=== PATIENT | male | born 1960 | race Caucasian/White ===

== ENCOUNTER 2020-11-04 10:24 | Outpatient (REF) | payer BC, SELFPAY | END 2020-11-04 10:25 | disposition home or self-care (01) | LOC: HO.LAB 10:24 | PROVIDERS: Visit Provider Internal Medicine | DX: Z20.822 Contact with and (suspected) exposure to COVID-19 (principal) | CPT/HCPCS: 36415; C9803; U0003; U0005 ==

== ENCOUNTER 2021-05-24 06:03 | Outpatient (REF) | payer BC, SELFPAY ==
--- NOTE | ~2021-05-24 | XR_ITS ---
EXAMINATION: XR LUMBAR SPINE XR PELVIS CLINICAL INFORMATION: Back and pelvic pain. Evaluate for osteoarthritis or degenerative disc disease. COMPARISON: None. TECHNIQUE: AP and lateral views of the lumbosacral spine are obtained. A lateral coned-down view of the lumbosacral junction is obtained. AP view the pelvis is obtained. FINDINGS: Lumbar Spine: There is no acute fracture or subluxation. There is ebxc-pw-[id number] multilevel degenerative disc disease, most prominent at the L3-4 and L4-5 levels. There is multilevel bilateral facet arthropathy, worse at the lower lumbar levels. Pelvis: There is no acute fracture or malalignment. There is mild osteoarthritis of the right hip. The left hip and sacroiliac joints are unremarkable. XR/XR lumbar spine 2-3V IMPRESSION: LUMBAR SPINE: [id number] multilevel degenerative disc disease. PELVIS: Mild osteoarthritis of the right hip.
--- NOTE | ~2021-05-24 | XR_ITS ---
EXAMINATION: XR CHEST CLINICAL INFORMATION: Weight loss. Back pain. COMPARISON: None TECHNIQUE: 2 views of the chest were obtained. FINDINGS: The cardiac and mediastinal contours are normal. There is a round density seen projecting over the left lung base and heart and adjacent to the spine measuring 2.6 cm on the PA view. There is a round density that projects over a lower thoracic vertebral body on the lateral view, the T10 vertebral body. Findings are questionable for a left lower lobe pulmonary nodule versus less likely sclerotic bone lesion. The lungs are otherwise clear. There is no pleural effusion or pneumothorax. There are degenerative changes of the spine.. XR/XR chest 2V IMPRESSION: Question left lower lobe pulmonary nodule versus sclerotic bone lesion. Follow-up chest CT scan recommended. Degenerative changes of the spine.
--- NOTE | ~2021-05-24 | XR_ITS ---
EXAMINATION: XR LUMBAR SPINE XR PELVIS CLINICAL INFORMATION: Back and pelvic pain. Evaluate for osteoarthritis or degenerative disc disease. COMPARISON: None. TECHNIQUE: AP and lateral views of the lumbosacral spine are obtained. A lateral coned-down view of the lumbosacral junction is obtained. AP view the pelvis is obtained. FINDINGS: Lumbar Spine: There is no acute fracture or subluxation. There is [id number] multilevel degenerative disc disease, most prominent at the L3-4 and L4-5 levels. There is multilevel bilateral facet arthropathy, worse at the lower lumbar levels. Pelvis: There is no acute fracture or malalignment. There is mild osteoarthritis of the right hip. The left hip and sacroiliac joints are unremarkable. XR/XR pelvis 1-2V IMPRESSION: LUMBAR SPINE: [id number] multilevel degenerative disc disease. PELVIS: Mild osteoarthritis of the right hip.
[2021-05-24 06:57] LABS: MANUAL DIFF FLAG NO
[2021-05-24 07:03] LABS: Basophils Absolute Auto 0.1 X10*3/uL (0.0-0.2); Basophils Percent Auto 1.6 % (0-2); Eosinophils Absolute Auto 0.6 X10*3/uL (0.0-0.4); Eosinophils Percent Auto 11.7 % (0-4); Hemoglobin 14.1 g/dl (14.0-18.0); Imm Gran Abs Auto 0.01 X10*3/uL (0.00-0.03); Imm Gran Pct Auto 0.2 % (0.0-0.4); Lymphocytes Absolute Auto 1.8 X10*3/uL (1.2-4.9); Lymphocytes Percent Auto 35.5 % (20-40); Mean Corpuscular HGB Conc 33.6 g/dl (31.0-36.0); Mean Corpuscular Hemoglobin 32.3 pg (27.0-33.0); Mean Corpuscular Volume 96.3 fL (80-98); Mean Platelet Volume 8.9 fL (9.4-12.4); Monocytes Absolute Auto 0.6 X10*3/uL (0.1-1.2); Monocytes Percent Auto 11.1 % (2-11); Neutrophils Percent Auto 39.9 % (45-73); Platelet Count 286 X10*3/uL (160-400); Red Blood Count 4.36 X10*6/uL (4.60-5.80); Red Cell Distribution Width 13.2 % (11.0-16.0)
[2021-05-24 07:12] LABS: Alanine Aminotransferase 31 U/L (0-40); Albumin Level 4.3 g/dL (3.5-5.0); Alkaline Phosphatase 54 U/L (39-117); Anion Gap 10 (12-20); Aspartate Amino Transferase 36 U/L (5-37); Bilirubin Total 0.9 mg/dL (0.0-1.0); Blood Urea Nitrogen 15 mg/dL (9-16); C Reactive Protein 0.07 mg/dL (< or = 0.50); Calcium 9.6 mg/dL (8.4-10.2); Carbon Dioxide 28 mmol/L (22-29); Chloride 108 mmol/L (96-108); Cholesterol 159 mg/dL; Estimated Glomerular Filt Rate > 60; Glucose Fasting 101 mg/dL (60-99); HDL Cholesterol 54 mg/dL; LDL Cholesterol Calculated 93 mg/dl; Potassium 4.7 mmol/L (3.3-5.1); Sodium 141 mmol/L (135-145); Total Protein 6.9 g/dL (6.5-8.0); Triglycerides 62 mg/dL
[2021-05-24 07:31] LABS: Glucose Urine UA NEG (NEG); Leukocyte Esterase Urine NEG (NEG); Nitrite Urine NEG (NEG); Specific Gravity - Urine 1.025 (1.005-1.025); Urine Blood NEG (NEG); Urine Ketones NEG (NEG); Urine Protein NEG (NEG-TRACE)
[2021-05-24 07:32] LABS: Appearance Urine CLEAR; Color Urine YELLOW
[2021-05-24 07:47] LABS: Thyroid Stimulating Hormone 1.44 uIU/mL (0.32-4.0)
[2021-05-24 09:21] LABS: Prostate Specific Antigen 1.54 ng/mL (<0.05-4.0)
== END 2021-05-24 06:04 | disposition home or self-care (01) ==
LOC: HO.LAB 06:03
PROVIDERS: PCP Internal Medicine; Visit Provider Internal Medicine
DX: Z12.5 Encounter for screening for malignant neoplasm of prostate (principal); R10.2 Pelvic and perineal pain; R63.4 Abnormal weight loss; M54.5 Low back pain
CPT/HCPCS: 36415; 71046; 72100; 72170; 80053; 80061; 81003; 84153; 84443; 85025; 86140

== ENCOUNTER 2021-06-09 07:54 | Outpatient (REF) | payer BC, SELFPAY ==
--- NOTE | ~2021-06-09 | MR_ITS ---
EXAMINATION: MR LUMBAR SPINE WITHOUT CONTRAST CLINICAL INFORMATION: Back pain radiating to both sciatic nerves. COMPARISON: X-rays of the lumbar spine 05/24/2021. TECHNIQUE: MRI of the lumbar spine was obtained using routine sequences without contrast. FINDINGS: VERTEBRAL BODIES AND PARASPINAL STRUCTURES: There are mild retrolistheses of L1 on L2, L3 on L4 and L4 on L5. There is narrowing of intervertebral disc height with loss of signal from the discs at L3-L4 and L4-L5. The vertebral bodies have normal height and contour and no fractures are demonstrated. There are multilevel degenerative endplate contour changes with mild edematous signal toward the left at L1-L2 and L3-L4, and toward the right at L4-L5 and L5-S1. There are Schmorl's nodes at adjacent endplates at multiple levels throughout the lower thoracic and lumbar spine. Overall, marrow signal is homogenous. The visualized retroperitoneal and pelvic structures are unremarkable. CONUS MEDULLARIS AND CAUDA EQUINA: Normal, terminating at the level of L1. The lower thoracic spinal cord appears normal. The cauda equina nerve roots and filum terminale appear normal. SPINAL LEVELS: L1-L2: There is mild bilateral facet arthropathy. Posterior contour is normal. There is no central stenosis or foraminal narrowing. L2-L3: There is mild to moderate bilateral facet arthropathy. Posterior disc contour is normal. There is no central stenosis or foraminal narrowing. L3-L4: There is mild to moderate bilateral facet arthropathy. There is a posterior disc protrusion which extends into the neural foramina, more prominent on the left and there is impingement on the exiting left greater than right L3 nerve roots. There is no central stenosis. L4-L5: There is moderate bilateral facet arthropathy. There is a posterior disc protrusion with an annular fissure which extends into the neural foramina laterally, more prominently on the right and there is impingement on the exiting right L4 nerve root. There is mild distortion of the ventral thecal sac and there is narrowing of the bilateral subarticular recesses. There is mild central stenosis. L5-S1: There is severe right and moderate to severe left facet arthropathy. There appears to be a small synovial cyst off the lateral aspect of the right facet joint. There is a broad-based posterior disc protrusion with an annular fissure extending into the neural foramina bilaterally. There is mass effect on the exiting right L5 nerve root and there is mild impingement on the exiting left L5 nerve root. There is narrowing of the subarticular recesses, and there is impingement on the traversing right S1 nerve root. There is no central stenosis., MR/MR lumbar spine wo con IMPRESSION: 1. At L5-S1 there is is facet arthropathy and there is a broad-based posterior disc protrusion. There is right greater than left foraminal nerve root impingement and there is impingement on the traversing right S1 nerve root. There is no central stenosis. 2. At L4-L5 there is facet arthropathy and there is a posterior disc protrusion extending into the neural foramina, more prominently on the right with impingement on the exiting right L4 nerve root. There is mild central stenosis. 3. At L3-L4 there is facet arthropathy. There is a posterior disc protrusion, extending into the neural foramina with impingement on the exiting left greater than right L3 nerve roots. There is no central stenosis.
--- NOTE | ~2021-06-09 | CT_ITS ---
EXAMINATION: CT CHEST WITHOUT CONTRAST CLINICAL INFORMATION: Left lung lesion. COMPARISON: Chest x-ray 05/24/2021. TECHNIQUE: Multidetector volumetric CT imaging of the chest was done. Axial MIP volume rendering provided. Sagittal and coronal reformatted images were obtained. This CT examination was performed using dose optimization techniques as appropriate, variously including the following: *Automated exposure control *Adjustment of mA and/or kV according to patient size (this includes techniques or standardized protocols for targeted exams where dose is matched to indication/reason for exam; i.e. extremities or head) *Use of iterative reconstruction technique DLP: 140 mGy-cm. FINDINGS: HOME CARE ASSISTANT: Unremarkable healthcare translator exam. LUNGS: There are mild emphysematous changes of both lungs without any acute pneumonic process. There are no prior nodules, mass or groundglass density. MEDIASTINUM: The heart size and great vessels are normal caliber. Central trachea and the bronchi are widely patent. The thyroid lobes are symmetrical and normal. No abnormal-sized mediastinal or hilar lymph nodes seen. The ascending aorta measures 4.0 x 3.8 cm. PLEURA: There is no pleural effusion. No pleural mass or thickening. AXILLA: No lymphadenopathy. UPPER ABDOMEN: Visualized liver, spleen, pancreas and bilateral adrenal glands are unremarkable. No radiopaque gallstone seen. OSSEOUS STRUCTURES: There is moderate spondylosis seen throughout the dorsal spine. There are hypertrophic bony changes/callus formation along the left costal 10th rib extending into the lung parenchyma, likely from old healed T12 compression fracture. CT/CT chest wo con IMPRESSION: No evidence of lung nodule or mass or abnormal lymphadenopathy. Nodule previously visualized on chest x-ray in left lower lobe in the paraspinal region is hypertrophic bony changes or callus formation along the left costal 10th rib, likely from an old fracture.
== END 2021-06-09 07:55 | disposition home or self-care (01) ==
LOC: HO.MRI 07:54
PROVIDERS: PCP Internal Medicine; Visit Provider Internal Medicine
DX: M54.16 Radiculopathy, lumbar region (principal); R93.6 Abnormal findings on diagnostic imaging of limbs
CPT/HCPCS: 71250; 72148

== ENCOUNTER 2022-05-25 07:46 | Outpatient (REF) | payer BC, SELFPAY ==
[2022-05-25 10:30] LABS: MANUAL DIFF FLAG NO
[2022-05-25 10:45] LABS: Basophils Percent Auto 0.9 % (0-2); Eosinophils Absolute Auto 0.1 X10*3/uL (0.0-0.4); Eosinophils Percent Auto 2.7 % (0-4); Hematocrit 42.9 % (42.0-52.0); Hemoglobin 14.4 g/dl (14.0-18.0); Imm Gran Abs Auto 0.01 X10*3/uL (0.00-0.03); Imm Gran Pct Auto 0.2 % (0.0-0.4); Lymphocytes Absolute Auto 1.6 X10*3/uL (1.2-4.9); Lymphocytes Percent Auto 36.4 % (20-40); Mean Corpuscular HGB Conc 33.6 g/dl (31.0-36.0); Mean Corpuscular Hemoglobin 32.2 pg (27.0-33.0); Mean Platelet Volume 9.1 fL (9.4-12.4); Monocytes Absolute Auto 0.4 X10*3/uL (0.1-1.2); Monocytes Percent Auto 9.7 % (2-11); Neutrophils Absolute Auto 2.2 x10*3/uL (2.0-8.3); Neutrophils Percent Auto 50.1 % (45-73); Platelet Count 264 X10*3/uL (160-400); Red Blood Count 4.47 X10*6/uL (4.60-5.80); Red Cell Distribution Width 13.3 % (11.0-16.0); White Blood Count 4.5 X10*3/uL (4.8-10.8)
[2022-05-25 10:48] LABS: Alanine Aminotransferase 35 U/L (0-40); Albumin Level 4.3 g/dL (3.5-5.0); Alkaline Phosphatase 52 U/L (39-117); Anion Gap 13 (12-20); Aspartate Amino Transferase 37 U/L (5-37); Bilirubin Total 0.6 mg/dL (0.0-1.0); Blood Urea Nitrogen 15 mg/dL (9-16); Calcium 9.2 mg/dL (8.4-10.2); Carbon Dioxide 27 mmol/L (22-29); Chloride 106 mmol/L (96-108); Cholesterol 181 mg/dL; Estimated Glomerular Filt Rate > 60; Glucose Fasting 96 mg/dL (60-99); HDL Cholesterol 59 mg/dL; LDL Cholesterol Calculated 111 mg/dl; Potassium 4.5 mmol/L (3.3-5.1); Sodium 141 mmol/L (135-145); Total Protein 6.8 g/dL (6.5-8.0); Triglycerides 58 mg/dL
[2022-05-25 11:10] LABS: Prostate Specific Antigen Scr 0.95 ng/mL (<0.05-4.0)
== END 2022-05-25 07:47 | disposition home or self-care (01) ==
LOC: HO.10HDL 07:46
PROVIDERS: Visit Provider Internal Medicine
DX: Z00.00 Encounter for general adult medical examination without abnormal findings (principal); Z12.5 Encounter for screening for malignant neoplasm of prostate
CPT/HCPCS: 36415; 80053; 80061; 84153; 85025

== ENCOUNTER 2023-06-08 11:30 | Outpatient (REF) | payer SELFPAY ==
[2023-06-08 13:34] LABS: MANUAL DIFF FLAG NO
[2023-06-08 13:47] LABS: Basophils Absolute Auto 0.1 X10*3/uL (0.0-0.2); Basophils Percent Auto 0.9 % (0-2); Eosinophils Absolute Auto 0.2 X10*3/uL (0.0-0.4); Eosinophils Percent Auto 2.9 % (0-4); Hematocrit 45.2 % (42.0-52.0); Hemoglobin 15.3 g/dl (14.0-18.0); Imm Gran Abs Auto 0.02 X10*3/uL (0.00-0.03); Imm Gran Pct Auto 0.3 % (0.0-0.4); Lymphocytes Absolute Auto 2.2 X10*3/uL (1.2-4.9); Lymphocytes Percent Auto 33.2 % (20-40); Mean Corpuscular HGB Conc 33.8 g/dl (31.0-36.0); Mean Corpuscular Hemoglobin 31.7 pg (27.0-33.0); Mean Corpuscular Volume 93.8 fL (80.0-98.0); Mean Platelet Volume 9.4 fL (9.4-12.4); Monocytes Absolute Auto 0.6 X10*3/uL (0.1-1.2); Monocytes Percent Auto 9.1 % (2-11); Neutrophils Absolute Auto 3.5 x10*3/uL (2.0-8.3); Neutrophils Percent Auto 53.6 % (45-73); Platelet Count 304 X10*3/uL (160-400); Red Blood Count 4.82 X10*6/uL (4.60-5.80); Red Cell Distribution Width 12.8 % (11.0-16.0); White Blood Count 6.6 X10*3/uL (4.8-10.8)
[2023-06-08 14:26] LABS: Prostate Specific Antigen Scr 1.16 ng/mL (<0.05-4.0)
[2023-06-08 14:51] LABS: Anion Gap 12 (12-20); Blood Urea Nitrogen 13 mg/dL (9-16); Calcium 9.8 mg/dL (8.4-10.2); Carbon Dioxide 27 mmol/L (22-29); Chloride 106 mmol/L (96-108); Cholesterol 177 mg/dL (<200); Estimated Glomerular Filt Rate > 60; Glucose Random 86 mg/dL (60-115); Potassium 4.2 mmol/L (3.3-5.1); Sodium 141 mmol/L (135-145)
== END 2023-06-08 11:31 | disposition home or self-care (01) ==
LOC: HO.10HDL 11:30
PROVIDERS: Visit Provider Internal Medicine
DX: Z12.5 Encounter for screening for malignant neoplasm of prostate (principal); I10 Essential (primary) hypertension; M54.9 Dorsalgia, unspecified; Z83.42 Family history of familial hypercholesterolemia
CPT/HCPCS: 36415; 80048; 82465; 84153; 85025

== ENCOUNTER 2023-11-21 10:39 | Outpatient (REF) | payer MEDICARE, OTHER, SELFPAY ==
--- NOTE | ~2023-11-21 | XR_ITS ---
EXAMINATION: XR SHOULDER, RIGHT CLINICAL INFORMATION: Pain. COMPARISON: None available. TECHNIQUE: AP neutral and scapular Y views of the right shoulder are submitted. FINDINGS: Bony alignment and mineralization are normal. The glenohumeral joint is intact. The acromioclavicular and coracoclavicular intervals are normal. There is mild osteoarthritic change of the glenohumeral joint. No fracture or dislocation is seen. There is a large distal acromial undersurface osteophyte, and there is cortical irregularity and subcortical cyst formation of the greater tuberosity of the proximal right humerus. No focal soft tissue calcification or foreign body is seen. There is no right pneumothorax. XR/XR shoulder RT min 2V IMPRESSION: 1. There is mild osteoarthritic change of the right glenohumeral joint. 2. Findings are consistent with right rotator cuff impingement. No renay calcific tendinitis is seen. EXAMINATION: XR SHOULDER, LEFT CLINICAL INFORMATION: Pain. COMPARISON: None available. TECHNIQUE: AP neutral and scapular Y views of the left shoulder are submitted. FINDINGS: Bony alignment and mineralization are normal. The glenohumeral joint is intact. The acromioclavicular and coracoclavicular intervals are normal. There is mild osteoarthritic change of the left glenohumeral joint. No fracture or dislocation is seen. There is cortical irregularity and subcortical cyst formation of the greater tuberosity proximal left humerus. No focal soft tissue calcification or foreign body is seen. There is no left pneumothorax. IMPRESSION: 1. There is mild osteoarthritic change of the left glenohumeral joint. 2. Findings are consistent with left rotator cuff impingement, without renay calcific tendinitis.
--- NOTE | ~2023-11-21 | XR_ITS ---
EXAMINATION: XR SHOULDER, RIGHT CLINICAL INFORMATION: Pain. COMPARISON: None available. TECHNIQUE: AP neutral and scapular Y views of the right shoulder are submitted. FINDINGS: Bony alignment and mineralization are normal. The glenohumeral joint is intact. The acromioclavicular and coracoclavicular intervals are normal. There is mild osteoarthritic change of the glenohumeral joint. No fracture or dislocation is seen. There is a large distal acromial undersurface osteophyte, and there is cortical irregularity and subcortical cyst formation of the greater tuberosity of the proximal right humerus. No focal soft tissue calcification or foreign body is seen. There is no right pneumothorax. XR/XR shoulder LT min 2V IMPRESSION: 1. There is mild osteoarthritic change of the right glenohumeral joint. 2. Findings are consistent with right rotator cuff impingement. No renay calcific tendinitis is seen. EXAMINATION: XR SHOULDER, LEFT CLINICAL INFORMATION: Pain. COMPARISON: None available. TECHNIQUE: AP neutral and scapular Y views of the left shoulder are submitted. FINDINGS: Bony alignment and mineralization are normal. The glenohumeral joint is intact. The acromioclavicular and coracoclavicular intervals are normal. There is mild osteoarthritic change of the left glenohumeral joint. No fracture or dislocation is seen. There is cortical irregularity and subcortical cyst formation of the greater tuberosity proximal left humerus. No focal soft tissue calcification or foreign body is seen. There is no left pneumothorax. IMPRESSION: 1. There is mild osteoarthritic change of the left glenohumeral joint. 2. Findings are consistent with left rotator cuff impingement, without renay calcific tendinitis.
== END 2023-11-21 10:40 | disposition home or self-care (01) ==
LOC: HO.HOSX 10:39
PROVIDERS: Visit Provider Orthopaedic Surgery
DX: M25.512 Pain in left shoulder (principal); M25.511 Pain in right shoulder; M75.102 Unspecified rotator cuff tear or rupture of left shoulder, not specified as traumatic
CPT/HCPCS: 73030; 99202

== ENCOUNTER 2023-11-21 12:43 | Outpatient (AMB) | payer MEDICARE, OTHER, SELFPAY ==
--- NOTE | 2023-11-21 12:59 | A.OFFVIS_ITS ---
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 The patient states that injured his left shoulder approximately 1 year ago while starting a chainsaw. Since that time his symptoms have gotten worse. He has had injections in the past which gave him minimal relief. He has also done physical therapy which aggravated his pain. The patient reports weakness when lifting his left hand above shoulder height. Allergies No Known Allergies Allergy (Verified 11/21/23 13:06) Medication List - Last Reconciled 11/21/23 by Alcides Stone MD No Known Home Meds [facility] Social History (Updated 11/21/23 @ 13:07 by Lakshmi Maravilla CMA) Current occupational status: retired Current occupation: Right 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 Physical Exam Vital Signs: BMI result Body Mass Index 25.1 Const Other: Well-nourished well-developed very friendly male awake alert and oriented x3 in no acute distress Extrem Other: Bilateral upper extremity examination shows good capillary refill, no skin lesions noted, normal sensation light touch Bilateral shoulder examination shows forward flexion to 160 degrees, external rotation to 40 degrees, internal rotation to 40 degrees, 4+ out of 5 strength with supraspinatus testing, positive impingement signs, tenderness over his acromioclavicular joints, no instability Results Reviewed Results Reviewed: X-rays of the patient's bilateral shoulder show severe acromioclavicular joint narrowing, type 3 acromion, no acute bony abnormalities Assessment & Plan Assessment & Plan (1) Right shoulder pain: Code(s): M25.511 - Pain in right shoulder (2) Left shoulder pain: Code(s): M25.512 - Pain in left shoulder Plan Mr. Bentley presents with bilateral shoulder pains and weakness, left greater than right, due to impingement syndrome and possible rotator cuff tearing. Thus, I will send the patient for an MRI of his left shoulder to further evaluate the status of his rotator cuff tendons. I will see him back once the MRI is completed to discuss the findings and treatment options. He will continue with his range of motion exercises in the meantime to prevent stiffness. Feel free to call me at any time should questions regarding his orthopedic management arise. Thank you very much for asking me to see this very friendly gentleman. I spent 22 minutes in reviewing the patient's records and imaging studies, seeing the patient and documenting in the medical record. Orders: Orders MR shoulder LT wo con Today M75.102 - Unspecified rotator cuff tear or rupture of left shoulder, not specified as traumatic XR shoulder LT min 2V Today M25.512 - Pain in left shoulder XR shoulder RT min 2V Today M25.511 - Pain in right shoulder Coding Level of Care Code New Pt Level 2 (11053) Diagnoses Right shoulder pain M25.511 Left shoulder pain M25.512
[2023-11-21 13:02] VITALS: BMI 25.1
== END 2023-11-21 13:22 | disposition home or self-care (01) ==
PROVIDERS: PCP Internal Medicine; Visit Provider Orthopaedic Surgery
DX: M25.511 Pain in right shoulder (principal); M25.512 Pain in left shoulder
CPT/HCPCS: 99202

== ENCOUNTER 2023-12-04 20:02 | Outpatient (REF) | payer MEDICARE, OTHER, SELFPAY ==
--- NOTE | ~2023-12-04 | MR_ITS ---
EXAMINATION: MR SHOULDER WITHOUT CONTRAST, LEFT CLINICAL INFORMATION: Left shoulder pain. COMPARISON: Radiographs 11/21/2023. TECHNIQUE: MRI of the shoulder without contrast was performed on a high-field scanner. FINDINGS: ROTATOR CUFF: Supraspinatus tendinosis with ill-defined interstitial partial tearing. No full-thickness tear. There is also partial tearing of the distal subscapularis tendon. No muscle atrophy or fatty infiltration. BICEPS: Longitudinal partial tearing of the biceps tendon, near-complete at the level of the lesser tuberosity where the tendon is medially subluxed out of the bicipital groove and courses between torn fibers of the subscapularis tendon into the glenohumeral joint. CORACOACROMIAL ARCH: The undersurface of the acromion is curved with no subacromial spur. Mild acromioclavicular osteoarthritis. LABRUM/CAPSULE: No definite labral tear. GLENOHUMERAL JOINT/MARROW: Degenerative cysts of the superolateral humeral head/greater tuberosity. Degenerative spurring of the anterior humeral head and small marginal osteophytes of the inferomedial humeral head and neck junction. No significant joint effusion. MR/MR shoulder LT wo con IMPRESSION: 1. Supraspinatus tendinosis with ill-defined interstitial partial tearing. No full-thickness tear. 2. Partial tearing of the distal subscapularis tendon. 3. Longitudinal partial tearing of the biceps tendon which is medially subluxed out of the bicipital groove and courses between torn fibers of the subscapularis tendon into the glenohumeral joint. 4. Mild acromioclavicular and glenohumeral osteoarthritis.
== END 2023-12-04 20:03 | disposition home or self-care (01) ==
LOC: HO.MRI 20:02
PROVIDERS: PCP Internal Medicine; Visit Provider Orthopaedic Surgery
DX: M75.102 Unspecified rotator cuff tear or rupture of left shoulder, not specified as traumatic (principal)
CPT/HCPCS: 73221

== ENCOUNTER 2023-12-18 08:05 | Outpatient (AMB) | payer MEDICARE, OTHER, SELFPAY ==
[2023-12-18 08:09] VITALS: BMI 25.1
--- NOTE | 2023-12-18 08:09 | MHC.OFFVIS ---
Intake Vital Signs 12/18/23 08:09 Height 5 ft 9 in Weight 170 lb BMI 25.1 Intake Visit Reasons: OV- MRI review Left shoulder Intake Note: Jong is a 63 year old male who presents with complaints of progressively worsening left shoulder pain. The patient describes his pain as sharp and severe in nature. Most of the pain is along the superior and lateral aspects of his shoulder. His pain has gotten worse over the last few years in spite of continued non operative treatments. He has done physical therapy which aggravated his pain. Has also tried Tylenol and anti-inflammatory medicines which gave him minimal relief. He has had cortisone injections in the past which gave him no relief. The patient states that his pain is worse when he is lifting his left hand above shoulder height. The patient reports mild weakness when lifting his left hand above shoulder height. Allergies No Known Allergies Allergy (Verified 12/18/23 08:12) Medication List - Last Reconciled 12/18/23 by Alcides Stone MD No Known Home Meds [facility] Social History Current occupational status: retired Current occupation: Right 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 Physical Exam Vital Signs: BMI result Body Mass Index 25.1 Const Other: Well-nourished well-developed very friendly male awake alert and oriented x3 in no acute distress Extrem Other: Bilateral upper extremity examination shows good capillary refill, no skin lesions noted, normal sensation light touch Left shoulder examination shows slightly decreased range of motion when compared to his right shoulder, 4+ out of 5 strength with supraspinatus testing, positive impingement signs, tenderness over his acromioclavicular joint, no instability Results Reviewed Results Reviewed: MRI of the patient's left shoulder show severe acromioclavicular joint narrowing, a type 3 acromion, signal change within the supraspinatus tendon due to rotator cuff tendinosis versus a small tear Assessment & Plan Assessment & Plan (1) Impingement syndrome of left shoulder: Code(s): M75.42 - Impingement syndrome of left shoulder Plan Mr. Bentley presents with progressively worsening left shoulder pain due to impingement syndrome, acromioclavicular joint arthritis and rotator cuff tendinosis versus a small full-thickness rotator cuff tear. I had a lengthy discussion with the patient regarding the treatment options. At this point he has failed continued non operative treatments. The risks and benefits of left shoulder surgery were discussed at length with the patient. The patient wishes to proceed with surgery. Surgery will likely involve left shoulder diagnostic arthroscopy with distal clavicle excision, acromioplasty and possible rotator cuff repair showed a full-thickness tear be found at the time of his surgery. The patient will be scheduled for next available date. Will continue with his activity modifications in the meantime. Feel free to call me at any time should questions regarding his orthopedic management arise. I spent 22 minutes in reviewing the patient's records and imaging studies, seeing the patient and documenting in the medical record. Coding Level of Care Code Est Pt Level 2 (49087) Diagnoses Impingement syndrome of left shoulder M75.42
== END 2023-12-18 08:26 | disposition home or self-care (01) ==
PROVIDERS: PCP Internal Medicine; Visit Provider Orthopaedic Surgery
DX: M75.42 Impingement syndrome of left shoulder (principal)
CPT/HCPCS: 99214

== ENCOUNTER → 2023-12-18 08:05 | Outpatient (BNVA) | payer MEDICARE, OTHER, SELFPAY | PROVIDERS: PCP Internal Medicine; Visit Provider Orthopaedic Surgery | DX: M75.42 Impingement syndrome of left shoulder (principal) | CPT/HCPCS: 99212 ==

== ENCOUNTER 2024-01-11 10:30 | Day surgery (SDC) | payer MEDICARE, OTHER, SELFPAY ==
[2024-01-11] VITALS (7 sets, daily range): BP systolic 113–140; BP diastolic 50–76; PULSE 60–80; RESP 16–18; TEMP 36.6–36.7; O2SAT 96–100; BMI 25.1
--- NOTE | 2024-01-11 11:44 | HO.ANESPROP2 ---
HPI - Anesthesia Eval Consult details Narrative: for left shoulder cuff repair PMFSH Active Problems Active Problems: All Active Problems Impingement syndrome of left shoulder (Acute) Right shoulder pain (Acute) Left shoulder pain (Acute) Family History Family history of problems with anesthesia: No Surgical History History of Problems with Anesthesia: No Social History Social History Patient Tobacco Use Status: Never used Tobacco Use of substances other than those prescribed or required for medical reasons: No Are you DNR?: No Advance Directives: No Advance Directives Information Provided: Yes Current occupational status: retired 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 occupation: Right 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 Meds Allergies Allergy/AdvReac Type Severity Reaction Status Date / Time No Known Allergies Allergy Verified 01/11/24 10:37 Home Medications ?Medication ?Instructions ?Recorded ?Confirmed ?Last Taken ?Type No Known Home Meds 11/21/23 01/11/24 Unknown History Exam Height,Weight and Vital Signs: Height 5 ft 9 in Weight 77.111 kg Last Vital Signs Temp 98.0 F 01/11/24 10:58 Pulse 60 01/11/24 10:58 Resp 16 01/11/24 10:58 BP 140/76 H 01/11/24 10:58 Pulse Ox 98 01/11/24 10:58 O2 Del Method Room Air 01/11/24 10:58 Airway Mallampati Class: II TM Dist: >3cm Neck ROM: Full Heart: rrr Lungs: cta Assessment and Plan Assessment Anesthesia Assessment: Anesthesia Plan Discussed and Chart Reviewed Final Anesthetic Review Family History of Problems with Anesthesia: No History of Problems with Anesthesia: No NPO: Yes ASA Class: I Final Preanesthetic Review: No Changes in Pt Med Stat, Meds/Allgs Chart Reviewed, Consent Obtained/Reviewed and Anes Risks/Benef Reviewed Patient Risk: Low Procedure Risk: Intermediate Anesthetic Plan Anesthetic Plan: GA and Regional Block Disposition: Standard PACU
--- NOTE | 2024-01-11 13:47 | P.BOP_ITS ---
Brief Operative Note Date of Service: 01/11/24 Pre-op diagnosis: Left shoulder impingement syndrome, left shoulder acromioclavicular joint arthritis, left shoulder adhesive capsulitis Post-op diagnosis: same Procedure: Left shoulder diagnostic arthroscopy with left shoulder arthroscopic distal clavicle excision, left shoulder arthroscopic acromioplasty, left shoulder anterior capsular release, left shoulder manipulation under anesthesia Implants: none Surgeon: Alcides Stone MD Anesthesia: GETA and regional Was an Research Hydrologist used for this Procedure?: No Estimated blood loss (mL): 10 Pathology: none sent Condition: stable Disposition: PACU
--- NOTE | 2024-01-11 13:48 | W.PM.OPN ---
Operative Note Operative Note Date of Service: 01/11/24 Narrative: After the patient was identified as Jong Bentley and left shoulder was initialed by myself the patient was brought to the holding area where a left shoulder interscalene regional block was performed by the anesthesiologist in routine fashion. The patient was then brought to the operating room where general anesthesia was induced by the anesthesiologist in routine fashion. The patient was given 2 g of IV Ancef preoperatively for infection prophylaxis. Examination under anesthesia of the patient's left shoulder showed decreased range of motion when compared to the right shoulder. The patient's left shoulder had forward flexion to 130 degrees compared to 160 degrees, external rotation to 30 degrees compared to 50 degrees, and internal rotation to 40 degrees compared to 50 degrees. The patient was gently positioned in the beach chair position with all bony prominences well padded. The patient's left shoulder region and upper extremity were prepped and draped in sterile fashion. A formal time-out was completed. A #11 scalpel blade was used to make a posterior portal 2 cm inferior and 1 cm medial to the posterolateral corner of the acromion. Blunt trocar technique was used to enter the glenohumeral joint in routine fashion. An anterior portal was made just lateral to the coracoid process after proper positioning was confirmed using a spinal needle. Diagnostic arthroscopy showed minimal degenerative changes of the glenoid and humeral head articular surfaces. There was no evidence of rotator cuff tearing. There was fraying of the biceps tendon measuring approximately 20% of the tendon width. The frayed fibers were debrided using the arthroscopic shaver. Following the debridement the remainder of the tendon was intact. There was inflammation of the anterior joint capsule consistent with adhesive capsulitis. The ArthroCare Wand was then used to perform an anterior capsular release between the inferior border of the biceps tendon and the superior border of the subscapularis tendon. The arthroscope was then placed from the posterior portal into the subacromial space. A lateral portal was made 2 fingerbreadths lateral to the anterior lateral corner of the acromion. The ArthroCare Wand was used to ablate soft tissues along the undersurface of the acromion as well as to excise the coracoacromial ligament. There was a sharp spur along the undersurface of the acromion which was removed using the hooded bur. The arthroscope was then placed into the lateral portal and the acromioplasty was completed with the bur in the posterior portal using the posterior aspect of the acromion as a cutting block. The ArthroCare Wand was then brought in through the anterior portal and was used to ablate soft tissues along the acromioclavicular joint and distal clavicle. The posterior and superior ligamentous structures were left intact. A distal clavicle excision of 8 mm was performed using the hooded bur. Any remaining bursal tissue was removed using the arthroscopic shaver. The subacromial space was irrigated and then drained. All arthroscopic instruments were removed. A gentle manipulation under anesthesia was then performed. Full passive range of motion was easily attained. The 3 portals were closed with 3-0 nylon interrupted suture. The subacromial space was injected with Marcaine. Dry sterile dressing was placed over all incisions. The patient's left upper extremity was placed into a sling. The patient was awoken and extubated in the operating room. The patient was transferred to the recovery room in stable condition.
[2024-01-11] MEDS: cefTRIAXone sodium 1 GM in 0.9 % Sodium Chloride 50 ML IV (13:55)
== END 2024-01-11 15:15 | disposition home or self-care (01) ==
PROVIDERS: PCP Internal Medicine; Visit Provider Orthopaedic Surgery
PROC: (CPT 29805; principal; 2024-01-11 12:20)
DX: M75.42 Impingement syndrome of left shoulder (principal); M75.02 Adhesive capsulitis of left shoulder; M19.012 Primary osteoarthritis, left shoulder
CPT/HCPCS: 29824; 29825; 29822; 29826; J0131; J0171; J0665; J0690; J0696; J1100; J2250; J2704; J2795; J3010

== ENCOUNTER → 2024-01-11 10:30 | Outpatient (BNV) | payer MEDICARE, OTHER, SELFPAY | PROVIDERS: PCP Internal Medicine; Visit Provider Orthopaedic Surgery | DX: M75.42 Impingement syndrome of left shoulder (principal); M19.012 Primary osteoarthritis, left shoulder; M75.02 Adhesive capsulitis of left shoulder | CPT/HCPCS: 29824; 29826 ==

== ENCOUNTER 2024-01-24 08:49 | Outpatient (AMB) | payer MEDICARE, OTHER, SELFPAY ==
--- NOTE | 2024-01-24 06:45 | MHC.OFFVIS ---
Vital Signs 01/24/24 08:52 Height 5 ft 9 in Weight 170 lb BMI 25.1 Intake Visit Reasons: PO-Lt Shld 01/11/24 Intake Note: Jong is a 63 year old male, right hand dominant, who presents today for post op on left shoulder . Patient reports tightness at the base of the shoulders. Denies pain or concerns today. Patient denies taking pain medication. 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 Stone. He states he has no pain however he reports tightness at the base of his shoulders. He has not been taking any pain medication. He is doing well overall and has no concerns today. [facility] Social History Patient Tobacco Use Status: Never used Tobacco Current occupational status: retired Current occupation: Right 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 Review of Systems Const All systems reviewed & are unremarkable except as noted in HPI and below Physical Exam Vital Signs: BMI result Body Mass Index 25.1 Extrem Other: Left shoulder: Normal to inspection. Incision clean, dry and intact. No erythema or drainage. He has full ROM in all planes. NVI. Results Reviewed Results Reviewed: Brief Operative Note Date of Service: 01/11/24 Pre-op diagnosis: Left shoulder impingement syndrome, left shoulder acromioclavicular joint arthritis, left shoulder adhesive capsulitis Post-op diagnosis: same Procedure: Left shoulder diagnostic arthroscopy with left shoulder arthroscopic distal clavicle excision left shoulder arthroscopic acromioplasty, left shoulder anterior capsular release, left shoulder manipulation under anesthesia Implants: none Surgeon: Alcides Stone MD Assessment & Plan Assessment & Plan (1) Impingement syndrome of left shoulder: Code(s): M75.42 - Impingement syndrome of left shoulder Category: Medical Plan Sutures removed today, steri strips applied. A course of physical therapy was placed to work on ROM and periscapular/RTC strengthening exercises. He will avoid excessive overhead reaching or lifting and repetitive motions for next 4 weeks till he will sees me back with Dr. Stone, sooner if needed. Orders: Orders PT Evaluation and Treatment Today M75.42 - Impingement syndrome of left shoulder Patient Instructions: Scribed for Madison Huggins PA-C, by Temo Castro medical science liaison, on 01/24/2024 at 9:00 AM EST. I, Madison Huggins PA-C, have personally reviewed and agree with the information entered by the scribe. Coding Level of Care Code Global (60181) Diagnoses Impingement syndrome of left shoulder M75.42
[2024-01-24 08:52] VITALS: BMI 25.1
== END 2024-01-24 09:33 | disposition home or self-care (01) ==
PROVIDERS: PCP Internal Medicine; Visit Provider Physician Assistant
DX: M75.42 Impingement syndrome of left shoulder (principal)
CPT/HCPCS: 99024

== ENCOUNTER → 2024-01-24 08:49 | Outpatient (BNVA) | payer MEDICARE, OTHER, SELFPAY | PROVIDERS: PCP Internal Medicine; Visit Provider Physician Assistant | DX: Z47.89 Encounter for other orthopedic aftercare (principal); M75.42 Impingement syndrome of left shoulder; Z98.890 Other specified postprocedural states | CPT/HCPCS: 99212 ==

== ENCOUNTER 2024-02-21 10:19 | Outpatient (AMB) | payer MEDICARE, OTHER, SELFPAY ==
--- NOTE | 2024-02-21 10:59 | MHC.OFFVIS ---
Vital Signs 02/21/24 11:00 Height 5 ft 9 in Weight 170 lb BMI 25.1 Intake Visit Reasons: PO-Lt Shld 01/11/24 Intake Note: Jong is a 63 year old male who presents for his post operative appointment s/p his Left shoulder on 01/11/2024 Patient reports he is doing fantastic. He is still going to physical therapy. He has no longer taking narcotics for his discomfort. He denies any fevers or chills. Allergies No Known Allergies Allergy (Verified 02/21/24 11:04) Medication List - Last Reconciled 02/22/24 by Alcides Stone MD No Known Home Meds [facility] Surgical History Hx of shoulder surgery (~01/11/24) Social History Patient Tobacco Use Status: Never used Tobacco Current occupational status: retired Current occupation: Right 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 Physical Exam Vital Signs: BMI result Body Mass Index 25.1 Extrem Other: Left shoulder examination shows that the surgical incisions are well healed, no erythema, full range of motion when compared to his right shoulder, 5/5 strength with supraspinatus testing Assessment & Plan Assessment & Plan (1) Left shoulder pain: Code(s): M25.512 - Pain in left shoulder Category: Medical Plan Mr. Bentley continues to do very well after undergoing left shoulder arthroscopic surgery on 01/11/2024. He will continue with his physical therapy exercises. The do's and don'ts of lifting were discussed at length with the patient. He will contact me prior to his follow-up appointment in 2 months should any questions or concerns arise. Feel free to call me at any time should questions regarding his orthopedic management arise. Coding Level of Care Code Global (59631) Diagnoses Left shoulder pain M25.512
[2024-02-21 11:00] VITALS: BMI 25.1
== END 2024-02-21 11:17 | disposition home or self-care (01) ==
PROVIDERS: PCP Internal Medicine; Visit Provider Orthopaedic Surgery
DX: M25.512 Pain in left shoulder (principal)
CPT/HCPCS: 99024

== ENCOUNTER → 2024-02-21 10:19 | Outpatient (BNVA) | payer MEDICARE, OTHER, SELFPAY | PROVIDERS: PCP Internal Medicine; Visit Provider Orthopaedic Surgery | DX: M25.512 Pain in left shoulder (principal) | CPT/HCPCS: 99212 ==

== ENCOUNTER 2024-03-05 14:00 | Outpatient (RCR) | payer MEDICARE, OTHER, SELFPAY ==
--- NOTE | 2024-02-11 14:16 | MHC.PT.EP ---
[facility] [place] Office [place] Office [place] Office [address] Sebastian Marquez 140 [facility] [phone] F: [phone] F: [phone] F: [phone] F: [phone] Physical Therapy Plan of Care Date of Evaluation: 02/11/24 Date of Surgery: 01/11/24 Diagnosis: Left shoulder diagnostic arthroscopy with left shoulder arthroscopic distal clavicle excision, left shoulder arthroscopic acromioplasty, left shoulder anterior capsular release, left shoulder manipulation under anesthesia Assessment: Pt is a pleasant and motivated 63yo M who is 4 weeks s/p left diagnostic arthroscopy with left shoulder arthroscopic distal clavicle excision, left shoulder arthroscopic acromioplasty, left shoulder anterior capsular release, left shoulder manipulation under anesthesia with Dr. Stone on 01/11/24. He presents to PT with expected impairments in pain, decreased left shoulder ROM, decreased strength, and impaired posture. He is limited functionally by tipping the wheel barrel, adduction, abduction, overhead ADLs, reaching behind back, and sleeping. He is an excellent candidate for skilled PT in order to address current impairments to facilitate return to OF. He is recommended to be seen 2x/week for 4 weeks and will be reassessed at that time Frequency and Duration: The patient will be seen 2x/week for 4 weeks Short Term Goals: Pt will be I with HEP to promote self management of symptoms Pt will improve left shoulder flexion by at least 10 degrees Pt will improve left shoulder abduction by at least 10 degrees Steam Box Tender Goals: Pt will achieve full ROM all planes of left shoulder to assist with functional tasks Pt will achieve full strength all planes of left shoulder to assist with lifting and reaching Pt will demonstrate improvements in function as evidenced by statistically significant improvement in SPADI outcome measure Treatment Plan: Modalities to reduce pain, spasms and effusion. Manual therapy to restore motion and function. Therapeutic exercise to improve strength and flexibility. Neuromuscular re-education for posture and balance. Therapeutic activities to return to functional activities of daily living. Electronically signed by: Kylah Camacho, PT, DPT Please sign and return to therapist. Thank you for your referral.
--- NOTE | 2024-03-07 13:00 | MHC.PT.DC ---
[facility] [place] Office [place] Office [place] Office [address] Sebastian Marquez [address] [phone] F: [phone] F: [phone] F: [phone] F: [phone] Physical Therapy Discharge Report Diagnosis: Left shoulder diagnostic arthroscopy with left shoulder arthroscopic distal clavicle excision, left shoulder arthroscopic acromioplasty, left shoulder anterior capsular release, left shoulder manipulation under anesthesia Date of Surgery: 01/11/24 Date of Evaluation: 02/11/24 Date of Discharge: 03/07/24 Treatments to Date: 7 Cancellations to Date: No Shows to Date: Discharge Status: Improved Function Independent with HEP Discharge Summary: Pt has made excellent progress since SOC. He has achieved full ROM and improved strength throughout left shoulder. He is independent and compliant with HEP. He is being D/C from skilled PT to HEP. He reports no further questions or concerns for PT at time of D/C Electronically signed by: Kylah Camacho, PT, DPT Please sign and return to therapist. Thank you for your referral.
== END 2024-03-07 12:58 | disposition home or self-care (01) ==
LOC: HO.PT 14:00
PROVIDERS: PCP Internal Medicine; Visit Provider Physician Assistant
DX: M75.42 Impingement syndrome of left shoulder (principal)
CPT/HCPCS: 97110; 97161; 97530

== ENCOUNTER 2024-04-15 08:35 | Outpatient (AMB) | payer MEDICARE, OTHER, SELFPAY ==
--- NOTE | 2024-04-15 08:39 | MHC.OFFVIS ---
Intake Visit Reasons: OV-Lt Shld 01/11/24 DR-follow up Intake Note: Jong is a 63 year old male who presents to the office today for a left shoulder 01/11/24 follow up. He reports mild intermittent discomfort along the lateral aspect of his left shoulder. He denies any fevers or chills. Has returned to lifting weights for exercise. He denies any weakness. Allergies No Known Allergies Allergy (Verified 04/15/24 08:39) Medication List - Last Reconciled 04/15/24 by Alcides Stone MD No Known Home Meds PFS Surgical History Hx of shoulder surgery (~01/11/24) Social History Patient Tobacco Use Status: Never used Tobacco Current occupational status: retired Current occupation: Right 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 Physical Exam Const Other: Well-nourished well-developed very friendly male awake alert and oriented x3 in no acute distress Extrem Other: Bilateral upper extremity examination shows good capillary refill, no skin lesions noted, normal sensation light touch Left shoulder examination shows that the surgical incisions are well healed, no erythema, full range of motion when compared to his right shoulder, 5/5 strength with supraspinatus testing Assessment & Plan Assessment & Plan (1) Left shoulder pain: Code(s): M25.512 - Pain in left shoulder Category: Medical Plan Mr. Bentley continues to do very well after undergoing left shoulder arthroscopic surgery on 01/11/2024. He will continue with his home exercise program. The do's and don'ts of lifting were discussed at length with the patient. He will follow up with me on an as-needed basis should his symptoms worsen in any way. Feel free to call me at any time should questions regarding his orthopedic management arise. I spent 21 minutes in reviewing the patient's records and imaging studies, seeing the patient and documenting in the medical record. Coding Level of Care Code Est Pt Level 3 (85968) Diagnoses Left shoulder pain M25.512
== END 2024-04-15 08:50 | disposition home or self-care (01) ==
PROVIDERS: PCP Internal Medicine; Visit Provider Orthopaedic Surgery
DX: M25.512 Pain in left shoulder (principal)
CPT/HCPCS: 99213

== ENCOUNTER → 2024-04-15 08:35 | Outpatient (BNVA) | payer MEDICARE, OTHER, SELFPAY | PROVIDERS: PCP Internal Medicine; Visit Provider Orthopaedic Surgery | DX: M25.512 Pain in left shoulder (principal); Z98.890 Other specified postprocedural states | CPT/HCPCS: 99212 ==

== ENCOUNTER 2024-06-26 08:59 | Outpatient (REF) | payer MEDICARE, OTHER, SELFPAY ==
[2024-06-26 09:18] LABS: MANUAL DIFF FLAG NO
[2024-06-26 09:46] LABS: Basophils Absolute Auto 0.1 X10*3/uL (0.0-0.2); Eosinophils Absolute Auto 0.2 X10*3/uL (0.0-0.4); Eosinophils Percent Auto 3.4 % (0-4); Hematocrit 44.1 % (42.0-52.0); Hemoglobin 14.7 g/dl (14.0-18.0); Imm Gran Abs Auto 0.02 X10*3/uL (0.00-0.03); Imm Gran Pct Auto 0.3 % (0.0-0.4); Lymphocytes Absolute Auto 1.7 X10*3/uL (1.2-4.9); Lymphocytes Percent Auto 28.7 % (20-40); Mean Corpuscular HGB Conc 33.3 g/dl (31.0-36.0); Mean Corpuscular Volume 96.1 fL (80.0-98.0); Mean Platelet Volume 8.9 fL (9.4-12.4); Monocytes Absolute Auto 0.6 X10*3/uL (0.1-1.2); Neutrophils Absolute Auto 3.4 x10*3/uL (2.0-8.3); Neutrophils Percent Auto 56.6 % (45-73); Platelet Count 261 X10*3/uL (160-400); Red Blood Count 4.59 X10*6/uL (4.60-5.80); Red Cell Distribution Width 13.1 % (11.0-16.0); White Blood Count 5.9 X10*3/uL (4.8-10.8)
[2024-06-26 10:29] LABS: Alanine Aminotransferase 29 U/L (0-40); Albumin Level 4.3 g/dL (3.5-5.0); Alkaline Phosphatase 84 U/L (39-117); Anion Gap 11 (12-20); Aspartate Amino Transferase 33 U/L (5-37); Bilirubin Total 0.2 mg/dL (0.0-1.0); Blood Urea Nitrogen 12 mg/dL (9-16); Calcium 9.8 mg/dL (8.4-10.2); Carbon Dioxide 26 mmol/L (22-29); Chloride 109 mmol/L (96-108); Cholesterol 153 mg/dL (<200); Estimated Glomerular Filt Rate > 60; Glucose Fasting 94 mg/dL (60-99); HDL Cholesterol 52 mg/dL (>40); LDL Cholesterol Calculated 86 mg/dL (<100); Potassium 4.4 mmol/L (3.3-5.1); Sodium 142 mmol/L (135-145); Total Protein 7.4 g/dL (6.5-8.0); Triglycerides 78 mg/dL (<150)
== END 2024-06-26 09:00 | disposition home or self-care (01) ==
LOC: HO.LAB 08:59
PROVIDERS: PCP Internal Medicine; Visit Provider Internal Medicine
DX: E78.00 Pure hypercholesterolemia, unspecified (principal); R63.5 Abnormal weight gain; Z87.891 Personal history of nicotine dependence; Z12.5 Encounter for screening for malignant neoplasm of prostate
CPT/HCPCS: 36415; 80053; 80061; 84153; 85025

== ENCOUNTER 2024-09-05 11:26 | Day surgery (SDC) | payer MEDICARE, OTHER, SELFPAY ==
[2024-09-03 12:23] VITALS: BMI 25.2
--- NOTE | 2024-09-04 10:01 | HO.ANESPROP2 ---
Documented by User: Hanna Hutchins NP 09/04/24 10:02 HPI - Anesthesia Eval Consult details Narrative: 64yo M for Upper Endoscopy and Colonoscopy PMFSH Active Problems Active Problems: All Active Problems Impingement syndrome of left shoulder (Acute) Right shoulder pain (Acute) Left shoulder pain (Acute) Past Medical History Medical History (Updated 09/03/24 @ 12:25 by Jessica Tijerina RN) Positive colorectal cancer screening using Cologuard test Epigastric pain Family History Family history of problems with anesthesia: No Surgical History Surgical History (Updated 09/03/24 @ 12:23 by Jessica Tijerina RN) Hx of shoulder surgery (~01/11/24) History of Problems with Anesthesia: No Social History Social History Patient Tobacco Use Status: Never used Tobacco Advance Directives: No Advance Directives Information Provided: Yes Current occupational status: retired Current occupation: Right 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 Meds Allergies Allergy/AdvReac Type Severity Reaction Status Date / Time No Known Allergies Allergy Verified 04/15/24 08:39 Home Medications ?Medication ?Instructions ?Recorded ?Confirmed ?Last Taken ?Type multivitamin 1 tab PO DAILY 09/03/24 09/03/24 Unknown History Exam Height,Weight and Vital Signs: Height 5 ft 9 in Weight 77.564 kg Assessment and Plan Assessment Anesthesia Assessment: Chart Reviewed Final Anesthetic Review Family History of Problems with Anesthesia: No History of Problems with Anesthesia: No Documented by User: Abel Rincon MD 09/05/24 12:15 PMFSH Past Medical History Medical History (Updated 09/03/24 @ 12:25 by Jessica Tijerina RN) Positive colorectal cancer screening using Cologuard test Epigastric pain Surgical History Surgical History (Updated 09/03/24 @ 12:23 by Jessica Tijerina RN) Hx of shoulder surgery (~01/11/24) Social History Social History Patient Tobacco Use Status: Never used Tobacco Advance Directives: No Advance Directives Information Provided: Yes Current occupational status: retired Current occupation: Right 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 Meds Allergies Allergy/AdvReac Type Severity Reaction Status Date / Time No Known Allergies Allergy Verified 04/15/24 08:39 Home Medications ?Medication ?Instructions ?Recorded ?Confirmed ?Last Taken ?Type multivitamin 1 tab PO DAILY 09/03/24 09/03/24 Unknown History Exam Airway Mallampati Class: II TM Dist: >3cm Neck ROM: Full Assessment and Plan Assessment Anesthesia Assessment: Anesthesia Plan Discussed Final Anesthetic Review NPO: Yes ASA Class: I Final Preanesthetic Review: No Changes in Pt Med Stat, Meds/Allgs Chart Reviewed, Consent Obtained/Reviewed, Anes Risks/Benef Reviewed and DNR Form (If Appl.) Patient Risk: Low Procedure Risk: Low Anesthetic Plan Anesthetic Plan: TIVA Disposition: Standard PACU
--- OUTSIDE RECORDS SUMMARY | 2024-09-05 11:29 | XMS_ITS | Continuity of Care Document ---
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 Order Name Results Value Reference Range Date Interpretation Specimen Comments Source T-SPOT TB PANEL MYCOBACTERI UM TUBERCULOSI S STIMULATED GAMMA INTERFERON [INTERPRETA TION] IN BLOOD QUALITATIVE Negative 05/14 Specimen Type: BLOOD Comment: A negative test result does not exclude the possibility of exposure to or infection with Mycobacteri um tuberculosi s (M. tuberculosi s). Patients with recent exposure to TB infected individuals exhibiting a negative T-SPOT.TB result should be considered for retesting within 6 weeks or if other relevant clinical symptoms indicate. Results from T-SPOT.TB testing must be used in conjunction with each individual' s epidemiolog ical history, current medical status, and results of other diagnostic evaluations . The T-SPOT.TB test is qualitative and results are reported as positive, borderline, or negative, given that the test controls perform as expected. In line with the Centers for Disease Control and Prevention' s 2010 recommendat ion to report quantitativ e measurement s alongside the qualitative result, the laboratory provides spot counts for information al purposes only. The T-SPOT.TB test should not be interpreted as a quantitativ e test. For additional information , please refer to http://educ ation.AgSquared .com/faq/FA Q215 (This link is being provided for information al/ educational purposes only.) Test Performed by Shell Bean, [employer] [facility], [address] [place] [address] Jairo Lal M.D., Ph.D., Director of Laboratorie s , CLIA [id number] TEST PERFORMED AT: , Ordering Provider: BLAYNE TAYLOR E Report Released Date/Time: May 07, 2024 09:08 AM Reporting Lab: [facility] [address] [facility] [address] Performing Lab: [facility] CAMPUSUSE[id number] [place] [address] T-SPOT TB PANEL MYCOBACTERI UM TUBERCULOSI S STIMULATED GAMMA INTERFERON ESAT-6 AG SPOT COUNT [#] IN BLOOD 2 05/14 Specimen Type: BLOOD Comment: A negative test result does not exclude the possibility of exposure to or infection with Mycobacteri um tuberculosi s (M. tuberculosi s). Patients with recent exposure to TB infected individuals exhibiting a negative T-SPOT.TB result should be considered for retesting within 6 weeks or if other relevant clinical symptoms indicate. Results from T-SPOT.TB testing must be used in conjunction with each individual' s epidemiolog ical history, current medical status, and results of other diagnostic evaluations . The T-SPOT.TB test is qualitative and results are reported as positive, borderline, or negative, given that the test controls perform as expected. In line with the Centers for Disease Control and Prevention' s 2010 recommendat ion to report quantitativ e measurement s alongside the qualitative result, the laboratory provides spot counts for information al purposes only. The T-SPOT.TB test should not be interpreted as a quantitativ e test. For additional information , please refer to http://educ ation.AgSquared .com/faq/FA Q215 (This link is being provided for information al/ educational purposes only.) Test Performed by ITS KOOLShell, [employer] [facility], [address] [place] [address] Jairo Lal M.D., Ph.D., Director of Laboratorie s , CLIA [id number] TEST PERFORMED AT: , Ordering Provider: BLAYNE TAYLOR E Report Released Date/Time: May 07, 2024 09:08 AM Reporting Lab: [facility] [address] [facility] [address] Performing Lab: [place] [id number] [facility] T-SPOT TB PANEL MYCOBACTERI UM TUBERCULOSI S STIMULATED GAMMA INTERFERON CFP10 AG SPOT COUNT [#] IN BLOOD 3 05/14 Specimen Type: BLOOD Comment: A negative test result does not exclude the possibility of exposure to or infection with Mycobacteri um tuberculosi s (M. tuberculosi s). Patients with recent exposure to TB infected individuals exhibiting a negative T-SPOT.TB result should be considered for retesting within 6 weeks or if other relevant clinical symptoms indicate. Results from T-SPOT.TB testing must be used in conjunction with each individual' s epidemiolog ical history, current medical status, and results of other diagnostic evaluations . The T-SPOT.TB test is qualitative and results are reported as positive, borderline, or negative, given that the test controls perform as expected. In line with the Centers for Disease Control and Prevention' s 2010 recommendat ion to report quantitativ e measurement s alongside the qualitative result, the laboratory provides spot counts for information al purposes only. The T-SPOT.TB test should not be interpreted as a quantitativ e test. For additional information , please refer to http://educ ation.AgSquared .com/faq/FA Q215 (This link is being provided for information al/ educational purposes only.) Test Performed by ITS [employer], [employer] [facility], [address] [place] [address] Jairo Lal M.D., Ph.D., Director of Laboratorie s , [facility] [id number] TEST PERFORMED AT: , Ordering Provider: BLAYNE TAYLOR Report Released Date/Time: May 07, 2024 09:08 AM Reporting Lab: [facility] [address] [facility] [address] Performing Lab: [facility] [address] [address] [facility] T-SPOT TB PANEL MITOGEN STIMULATED GAMMA INTERFERON POSITIVE CONTROL SPOT COUNT [#] IN BLOOD Passed 05/14 Specimen Type: BLOOD Comment: A negative test result does not exclude the possibility of exposure to or infection with Mycobacteri um tuberculosi s (M. tuberculosi s). Patients with recent exposure to TB infected individuals exhibiting a negative T-SPOT.TB result should be considered for retesting within 6 weeks or if other relevant clinical symptoms indicate. Results from T-SPOT.TB testing must be used in conjunction with each individual' s epidemiolog ica history, current medical status, and results of other diagnostic evaluations . The T-SPOT.TB test is qualitative and results are reported as positive, borderline, or negative, given that the test controls perform as expected. In line with the Centers for Disease Control and Prevention' s 2010 recommendat ion to report quantitativ e measurement s alongside the qualitative result, the laboratory provides spot counts for information al purposes only. The T-SPOT.TB test should not be interpreted as a quantitativ e test. For additional information , please refer to http://educ ation.AgSquared .Glovico/faq/FA Q215 (This link is being provided for information al/ educational purposes only.) Test Performed by ITS KOOLShell, [employer]ur[employer] [facility], [address] [place] [address] Jairo Lal M.D., Ph.D., Director of Laboratorie s , [place] [id number] TEST PERFORMED AT: , Ordering Provider: BLAYNE TAYLOR Report Released Date/Time: May 07, 2024 09:08 AM Reporting Lab: [facility] [address] [facility] [address] Performing Lab: [facility] [address] [address] [facility] T-SPOT TB PANEL GAMMA INTERFERON NEGATIVE CONTROL SPOT COUNT [#] IN BLOOD Passed 05/14 Specimen Type: BLOOD Comment: A negative test result does not exclude the possibility of exposure to or infection with Mycobacteri um tuberculosi s (M. tuberculosi s). Patients with recent exposure to TB infected individuals exhibiting a negative T-SPOT.TB result should be considered for retesting within 6 weeks or if other relevant clinical symptoms indicate. Results from T-SPOT.TB testing must be used in conjunction with each individual' s epidemiolog ical history, current medical status, and results of other diagnostic evaluations . The T-SPOT.TB test is qualitative and results are reported as positive, borderline, or negative, given that the test controls perform as expected. In line with the Centers for Disease Control and Prevention' s 2010 recommendat ion to report quantitativ e measurement s alongside the qualitative result, the laboratory provides spot counts for information al purposes only. The T-SPOT.TB test should not be interpreted as a quantitativ e test. For additional information , please refer to http://educ ation.AgSquared .Glovico/faq/FA Q215 (This link is being provided for information al/ educational purposes only.) Test Performed by ITS KOOLShell, [email or web address] [facility], [address] [place] [address] Jairo Lal M.D., Ph.D., Director of Laboratorie s , CLIA [id number] TEST PERFORMED AT: , Ordering Provider: BLAYNE TAYLOR Report Released Date/Time: May 07, 2024 09:08 AM Reporting Lab: [facility]CH[facility]ERN Social & [facility]METROPOL[facility] [address] [facility] [address] Performing Lab: [place] [facility] ImindiN Social & LoyalUSENYU [facility] [address] [address] [facility]
[2024-09-05 12:33] VITALS: BMI 24.7
[2024-09-05 12:40] VITALS: BP 141/81; PULSE 55; RESP 16; TEMP 37.4; O2SAT 99
[2024-09-05] MEDS: Lactated Ringers 1,000 ML 100 ML IVCONT (12:48)
--- NOTE | 2024-09-05 12:51 | MHC.SHP ---
Pre-Procedural Eval Section A - 24 Hr Update-Section A only Date of Service: 09/05/24 The patient is an INPATIENT: No Changes since office visit: No Cold of Flu in the past 2 weeks, No New Medical Problems, No Changes in Medication and No Patient answered all questions The patient has been examined within 24 hours of the surgical procedure. The History & Physical has been completed within 30 days and I have reviewed it.: Yes Section B - Complete if H&P > 30 days Chief Complaint: Other fecal abnormalities,Epigastric pain Allergies: Allergies Allergy/AdvReac Type Severity Reaction Status Date / Time No Known Allergies Allergy Verified 04/15/24 08:39 Plan I have reviewed the history and physical and performed a pertinent physical examination on my patient. No changes have occurred unless specified. Time Spent With Patient Time: Total time managing care of this patient today ____ minutes.
[2024-09-05 13:39] VITALS: BP 92/46; PULSE 60; RESP 16; TEMP 36.1; O2SAT 97
[2024-09-05 13:50] VITALS: BP 108/62; PULSE 53; RESP 16; O2SAT 97
[2024-09-05 14:05] VITALS: BP 114/68; PULSE 50; RESP 16; TEMP 36.1; O2SAT 99
--- NOTE | 2024-09-05 14:40 | OP_ITS ---
DATE OF SERVICE: 09/05/2024 SURGEON: John Jacques MD INDICATIONS: 1. Abnormal findings in stool. 2. Epigastric pain. PREOPERATIVE DIAGNOSIS: POSTOPERATIVE DIAGNOSIS: PROCEDURE PERFORMED: Upper endoscopy with biopsy, colonoscopy to the terminal ileum. ESTIMATED BLOOD LOSS: COMPLICATIONS: ANESTHESIA: Medications: Monitored anesthesia care. ASSISTANTS: SPECIMENS: DESCRIPTION OF PROCEDURE: A history and physical was performed and the risks and benefits of the procedure were explained to the patient. An informed consent was obtained. The patient was placed in the left lateral decubitus position. The Olympus video gastroscope was introduced into the esophagus, stomach, and duodenum. Examination was performed. The scope was removed. He was repositioned for colonoscopy. A digital rectal exam was performed and was found to be normal. The Olympus pediatric video colonoscope was introduced into the rectum and advanced to the cecum. The cecum was identified by transillumination, palpation, and identification of ileocecal valve. Examination was performed and the scope was removed. He tolerated both procedures well and was taken to recovery in stable condition. FINDINGS: Upper endoscopy: Esophagus: The esophagus was normal. Stomach: The stomach showed no evidence of masses or ulcers. There was mild gastritis involving the antrum. Biopsies were obtained to rule out H pylori. Duodenum: The bulb and second portion were normal. Colonoscopy: The terminal ileum was normal. The visualized colonic mucosa was normal. The quality of the prep was good. No polyps were identified. There was mild sigmoid diverticulosis. Retroflexed examination showed some internal hemorrhoids. IMPRESSION: 1. Gastritis. 2. Normal colonoscopy. RECOMMENDATIONS: 1. Follow up the biopsy results. 2. Repeat colonoscopy is recommended in 10 years for average-risk individuals. MD HUGH Stokes/JASON / [id number]
== END 2024-09-05 14:44 | disposition home or self-care (01) ==
PROVIDERS: PCP Internal Medicine; Visit Provider Internal Medicine Gastroenterology
PROC: (CPT 45378; principal; 2024-09-05 13:10)
DX: R19.5 Other fecal abnormalities (principal); K57.30 Diverticulosis of large intestine without perforation or abscess without bleeding; K64.8 Other hemorrhoids; R10.13 Epigastric pain; K29.50 Unspecified chronic gastritis without bleeding; Z79.899 Other long term (current) drug therapy; Z98.890 Other specified postprocedural states
CPT/HCPCS: 45378; 43239; 88305; 88342; J1100; J1596; J2003; J2704

== ENCOUNTER 2024-10-30 11:09 | Outpatient (REF) | payer MEDICARE, OTHER, SELFPAY ==
--- NOTE | ~2024-10-30 | XR_ITS ---
EXAMINATION: XR SHOULDER, RIGHT CLINICAL INFORMATION: M25.511 - Pain in right shoulder COMPARISON: None available. TECHNIQUE: AP external rotation, Grashey, scapular Y, and axillary views of the right shoulder. FINDINGS: There is mild loss of glenohumeral joint space with inferior spurring. Also visualizes mild inferior acromial spurring. AC joint is somewhat maintained normal. No visible acute fracture or dislocation seen. XR/XR shoulder RT min 2V IMPRESSION: Acute fracture or dislocation. Mild degenerative changes glenohumeral joint space. There is inferior acromial and glenohumeral joint spurring. Electronically signed by: Charlie Sevilla MD 10/30/2024 11:48 AM EST
--- OUTSIDE RECORDS SUMMARY | 2024-10-30 11:26 | XMS_ITS | Continuity of Care Document ---
Author Name [facility] Organization [facility] Care Team Providers Care Hogshead Weigher Name Role Phone [facility] Unavailable Unavailable Results Combined list of recent [...] additional information , please refer to http://educ ation.RollSale .com/faq/FA Q215 (This link is being provided for information al/ educational purposes only.) Test Performed by Shell Bean, [employer] [facility], [address] [place] [address] Jairo Lal M.D., Ph.D., Director of Laboratorie s , CLIA [id number] TEST PERFORMED AT: , Ordering Provider: BLAYNE TAYLOR E Report Released Date/Time: May 07, 2024 09:08 AM Reporting Lab: [facility] [address] [facility] [address] Performing Lab: [facility] HEALTHCAREUSE[id number] [place] [address] T-SPOT TB PANEL MYCOBACTERI UM TUBERCULOSI S [...] additional information , please refer to http://educ ation.RollSale .com/faq/FA Q215 (This link is being provided for information al/ educational purposes only.) Test Performed by Live Life [employer], [employer] [facility], [address] [place] [address] Jairo Lal M.D., Ph.D., Director of Laboratorie s , CLIA [id number] TEST PERFORMED AT: , Ordering Provider: BLAYNE TAYLOR E Report Released Date/Time: May 07, 2024 09:08 AM Reporting Lab: [facility] [address] [facility] [address] Performing Lab: [place] [id number] [facility] T-SPOT TB PANEL MYCOBACTERI UM TUBERCULOSI S [...] additional information , please refer to http://educ ation.RollSale .com/faq/FA Q215 (This link is being provided for information al/ educational purposes only.) Test Performed by [employer], [employer] [facility], [address] [place] [address] Jairo Lal M.D., Ph.D., Director of Laboratorie s , [facility] [id number] TEST PERFORMED AT: , Ordering Provider: BLAYNE TAYLOR Report Released Date/Time: May 07, 2024 09:08 AM Reporting Lab: [facility] [address] [facility] [address] Performing Lab: [facility] [address] [address] [facility] T-SPOT TB PANEL MITOGEN STIMULATED GAMMA INTERFERON [...] additional information , please refer to http://educ ation.RollSale .awesomize.me/faq/FA Q215 (This link is being provided for information al/ educational purposes only.) Test Performed by [employer], [employer] [facility], [address] [place] [address] Jairo Lal M.D., Ph.D., Director of Laboratorie s , [place] [id number] TEST PERFORMED AT: , Ordering Provider: BLAYNE TAYLOR Report Released Date/Time: May 07, 2024 09:08 AM Reporting Lab: [facility] [address] [facility] [address] Performing Lab: [facility] [address] [address] [facility] T-SPOT TB PANEL GAMMA INTERFERON NEGATIVE CONTROL [...] additional information , please refer to http://educ ation.RollSale .awesomize.me/faq/FA Q215 (This link is being provided for information al/ educational purposes only.) Test Performed by [employer], [employer] [facility], [address] [place] [address] Jairo Lal M.D., Ph.D., Director of Laboratorie s , CLIA [id number] TEST PERFORMED AT: , Ordering Provider: BLAYNE TAYLOR Report Released Date/Time: May 07, 2024 09:08 AM Reporting Lab: [facility] Ticket ManagementEASTERN NEW MEX[facility] MEDICAL CENTERN Challenge GamesMANHATTAN PSYCHIATR[facility] [address] [facility] [address] Performing Lab: [facility] [employer] CREAM Entertainment GroupN Challenge GamesUSEMOUNT SAINT MARY'S [facility] [address] [address] [facility]
== END 2024-10-30 11:10 | disposition home or self-care (01) ==
LOC: HO.HOSX 11:09
PROVIDERS: PCP Internal Medicine; Visit Provider Orthopaedic Surgery
DX: Z13.89 Encounter for screening for other disorder (principal)
CPT/HCPCS: 73030

== ENCOUNTER 2024-10-30 11:09 | Outpatient (AMB) | payer MEDICARE, OTHER, SELFPAY ==
--- OUTSIDE RECORDS SUMMARY | 2024-10-30 11:12 | XMS_ITS | Continuity of Care Document ---
Author Name [facility] Organization [facility] Care Team Providers Care Supervisor Solder Making Name Role Phone [facility] Unavailable Unavailable Results Combined list of recent [...] additional information , please refer to http://educ ation.CollabRx .com/faq/FA Q215 (This link is being provided for information al/ educational purposes only.) Test Performed by Shell Bean, [employer] [facility], [address] [place] [address] Jairo Lal M.D., Ph.D., Director of Laboratorie s , CLIA [id number] TEST PERFORMED AT: , Ordering Provider: BLAYNE TAYLOR E Report Released Date/Time: May 07, 2024 09:08 AM Reporting Lab: [facility] [address] [facility] [address] Performing Lab: [facility]ITALN [facility]AK HOSPITALUSE[id number] [place] [address] T-SPOT TB PANEL MYCOBACTERI UM TUBERCULOSI S [...] additional information , please refer to http://educ ation.CollabRx .com/faq/FA Q215 (This link is being provided for information al/ educational purposes only.) Test Performed by [employer]co[employer]smShell, [employer] [facility], [address] [place] [address] Jairo Lal M.D., Ph.D., Director of Laboratorie s , CLIA [id number] TEST PERFORMED AT: , Ordering Provider: BLAYNE TAYLOR E Report Released Date/Time: May 07, 2024 09:08 AM Reporting Lab: [facility] [address] [facility] [address] Performing Lab: [place] [id number] [facility] T-SPOT TB PANEL MYCOBACTERI UM TUBERCULOSI S [...] additional information , please refer to http://educ ation.CollabRx .com/faq/FA Q215 (This link is being provided for information al/ educational purposes only.) Test Performed by [employer]sm[employer], [employer] [facility], [address] [place] [address] Jairo Lal M.D., Ph.D., Director of Laboratorie s , [facility] [id number] TEST PERFORMED AT: , Ordering Provider: BLAYNE TAYLOR Report Released Date/Time: May 07, 2024 09:08 AM Reporting Lab: [facility] [address] [facility] [address] Performing Lab: [facility] [address] [address] [facility] T-SPOT TB PANEL MITOGEN STIMULATED GAMMA INTERFERON [...] additional information , please refer to http://educ ation.CollabRx .Snocap/faq/FA Q215 (This link is being provided for information al/ educational purposes only.) Test Performed by Microco.smShell, [employer] [facility], [address] [place] [address] Jairo Lal M.D., Ph.D., Director of Laboratorie s , [place] [id number] TEST PERFORMED AT: , Ordering Provider: BLAYNE TAYLOR Report Released Date/Time: May 07, 2024 09:08 AM Reporting Lab: [facility] [address] [facility] [address] Performing Lab: [facility] [address] [address] [facility] T-SPOT TB PANEL GAMMA INTERFERON NEGATIVE CONTROL [...] additional information , please refer to http://educ ation.CollabRx .Snocap/faq/FA Q215 (This link is being provided for information al/ educational purposes only.) Test Performed by Microco.smShell, [employer] [facility], [address] [place] [address] Jairo Lal M.D., Ph.D., Director of Laboratorie s , CLIA [id number] TEST PERFORMED AT: , Ordering Provider: BLAYNE TAYLOR Report Released Date/Time: May 07, 2024 09:08 AM Reporting Lab: [facility]DtechM[facility]BR[facility]OSPITALN [address] [facility] [address] [facility] [address] Performing Lab: [place] [employer] AltaVitasN [address] Julur.comUSEGUTHRIE CORNING [facility]OSP[facility] [address] [address] [facility]
[2024-10-30 11:16] VITALS: BMI 24.7
--- NOTE | 2024-10-30 11:16 | MHC.OFFVIS ---
Vital Signs 10/30/24 11:16 Height 5 ft 9 in Weight 167 lb BMI 24.7 Intake Visit Reasons: Right shoulder pain and weakness Intake Note: Jong is a 64 year old male who presents with complaints of progressively worsening right shoulder pain and weakness. The patient did undergo left shoulder surgery on 01/11/2024. He denies any pain in his left shoulder. He describes his right shoulder pain as sharp and severe in nature. The patient states that his right shoulder pain has gotten worse over the last year in spite of continued non operative treatments. He did injure his right shoulder while chopping and lifting wood. He has had difficulty lifting his right hand above shoulder height. He has had cortisone injections in the past which gave him no relief. He has failed the last 6 weeks of conservative treatment. He has tried Tylenol and anti-inflammatory medicines which gave him minimal relief. He denies any numbness or tingling in either of his upper extremities. 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 Physical Exam Vital Signs: BMI result Body Mass Index 24.7 Const Other: Well-nourished well-developed very friendly male awake alert and oriented x3 in no acute distress Extrem Other: Right shoulder examination shows decreased range of motion when compared to his left shoulder, 4/5 strength with supraspinatus testing, positive impingement signs, tenderness over his acromioclavicular joint, no instability Results Reviewed Results Reviewed: X-rays of the patient's right shoulder show severe acromioclavicular joint narrowing, a type 3 acromion, no acute bony abnormalities Assessment & Plan Assessment & Plan (1) Right shoulder pain: Code(s): M25.511 - Pain in right shoulder Category: Medical (2) Complete rotator cuff tear or rupture of right shoulder, not specified as traumatic: Code(s): M75.121 - Complete rotator cuff tear or rupture of right shoulder, not specified as traumatic Category: Medical Plan Mr. Bentley presents with progressively worsening right shoulder pain and weakness due to impingement syndrome and possible full-thickness rotator cuff tearing. Thus, I will send the patient for an MRI of his right shoulder for further evaluation. I will see him back once the MRI is completed to discuss the findings and treatment options. Feel free to call me at any time should questions regarding his orthopedic management arise. I spent 22 minutes in reviewing the patient's records and imaging studies, seeing the patient and documenting in the medical record. Orders: Orders MR shoulder RT wo con Today M75.121 - Complete rotator cuff tear or rupture of right shoulder, not specified as traumatic XR shoulder RT min 2V Today M25.511 - Pain in right shoulder Coding Level of Care Code Est Pt Level 3 (94929) Complex EM visit Add On G2211 Diagnoses Right shoulder pain M25.511 Complete rotator cuff tear or rupture of right shoulder, not specified as traumatic M75.121
== END 2024-10-30 11:48 | disposition home or self-care (01) ==
PROVIDERS: PCP Internal Medicine; Visit Provider Orthopaedic Surgery
DX: M25.511 Pain in right shoulder (principal); M75.121 Complete rotator cuff tear or rupture of right shoulder, not specified as traumatic
CPT/HCPCS: 99213; G2211

== ENCOUNTER → 2024-10-30 11:31 | Outpatient (BNV) | payer MEDICARE, OTHER, SELFPAY | PROVIDERS: PCP Internal Medicine; Visit Provider Radiology Diagnostic Radiology | DX: M75.121 Complete rotator cuff tear or rupture of right shoulder, not specified as traumatic (principal); M19.011 Primary osteoarthritis, right shoulder | CPT/HCPCS: 73030 ==

== ENCOUNTER 2024-10-30 16:19 | Outpatient (REF) | payer MEDICARE, OTHER, SELFPAY ==
--- NOTE | ~2024-10-30 | MR_ITS ---
CLINICAL HISTORY: M75.121 - Complete rotator cuff tear or rupture of right shoulder, not s... MR right shoulder without gadolinium Comparison: None Findings: No acute fractures. No pathologic bone lesions. There are degenerative/arthritic changes in the acromioclavicular joint.. Type II acromion. There are glenohumeral joint and subdeltoid bursal effusions.. There is retracted full-thickness supraspinatus tendon tear. No tears of the long head of biceps tendon. Glenoid labrum is intact. IMPRESSION: 1. Retracted full-thickness supraspinatus tendon tear with glenohumeral subdeltoid bursal effusions. 2. AC joint degenerative/arthritic changes. This document has been electronically signed by: Elgin Romo MD on 10/31/2024 19:33:43
== END 2024-10-30 16:20 | disposition home or self-care (01) ==
LOC: HO.MRI 16:19
PROVIDERS: Visit Provider Orthopaedic Surgery
DX: M75.121 Complete rotator cuff tear or rupture of right shoulder, not specified as traumatic (principal)
CPT/HCPCS: 73030; 73221; 99212

== ENCOUNTER 2024-12-02 07:31 | Outpatient (AMB) | payer MEDICARE, OTHER, SELFPAY ==
--- OUTSIDE RECORDS SUMMARY | 2024-12-02 07:33 | XMS_ITS ---
Author Organization [facility] Address [address] [place] [phone] Care Team Providers Care Adult Care Provider Name Role Phone Scott Ellison MD Primary Care Provider John Rivera Jr [phone] REASON FOR VISIT epigastric pain,abnormall findings in stool Problems Problem Type SNOMED Code ICD Code Onset Dates Problem Status W/U Status Risk Notes Problem Gastritis (2704317) Gastritis (K29.70) Active confirmed Encounters Encounter Location Date Provider Diagnosis [facility] Outpatient [address] [place] [phone] 09/05/2024 John Jacques Jr Abnormal findings in [...] * JAD ZHANG EDOB:[birth year] (64 yo M)Acc No.[id number]:09/05/2024 EGD and COL/MAC Patient:?JAD ZHANG Provider:?John Jacques MD :1960???Age:64 Y???Sex:Male Pete e:09/05/2024 Address:[address] [place], [place] [id number] Pcp:Scott Ellison MD Subjective: * Chief Complaints: * ???1. Epigastric pain,abnorm all findings in stool. * Medical History:? Objective: * Vitals:? Assessment: * Assessment: 1.?Abnormal findings in stoo l - R19.5 (Primary)???2.?Epigastric pain - R10.13???3.?Gastritis - K29.70??? Plan: * Treatment: * Procedure Codes:?64460 DIAGN OSTIC COLONOSCOPY, 0528F RCMND FLW-UP 10 YRS DOCD * Preventive Medicine:? ??LESLEE Screening:?Colonoscopy?Was interval between colonoscopies three years or more??No due to Medical Reason,?Was last colonoscopy performed three or more years ago??No due to Medical Reason.? * * The named appointment provid er may or may not be the originator of this progress note, and it is not deemed complete until electronically signed by the appointment provider. Sign off status: Pending * Provider:?John Jacques MD Date:?1 11/06/2023 Generated for Didi larson/Guerita/eTransmitting on:?12/02/2024 07:33 AM EDT
--- OUTSIDE RECORDS SUMMARY | 2024-12-02 07:34 | XMS_ITS ---
Author Organization [facility] Address [address] [place] [phone] Care Team Providers Care Electronic Controls Repairer Supervisor Name Role Phone Scott Ellison MD Primary Care Provider John Rivera Jr Unavailable Allergies No Known Allergies REASON FOR VISIT Patient presents today for a POSITIVE COLOGUARD Medications Medication SIG (Take, Route, Frequency, Duration) Notes Start Date End Date Status One A Day Men 50 Plus - as directed Orally Active MiraLax (colon prep) 17 GM/SCOOP mixed with Gatorade or Crystal Light Orally begin at 5:00 p.m. the day before the procedure for 1 day 08/27/2024 Active Immunizations Vaccine Route Administration Date Status Comme nts Influenza Unknown 08/27/2024 Refused Social History Tobacco Use: Social History Observation Description Date Details (start date - stop date) Never Smoker NA - NA Tobacco Use/Smoking Question Answer Notes Patient is a nonsmoker Alcohol Screen Question Answer Notes Did you have a drink containing alcohol in the p ast year? No Points 0 Interpretation Negative Problems Problem Type SNOMED Code ICD Code Onset Dates Problem Status W/U Status Risk Notes Problem [id number] Epigastric pain (R10.13) Active confirmed Problem 565746147 Abnormal findings in stool (R19.5) Active confirmed Vital Signs Temperature 97.7 degrees Fahrenheit 08/27/20 24 Blood pressure systolic 000 mm Hg 08/27/20 24 Blood pressure diastolic 00 mm Hg 024 Height 5 ft 9 in in 08/27/2024 Weight 171 lb 6 oz lbs 08/27/2024 BMI 25.30 kg/m2 08/27/2024 Encounters Encounter Location Date Provider Diagnosis [facility] [address] [place] [address] 08/27/2024 John Jacques Jr Epigastric pain R10.13 and Abnormal findings in stool R19.5 Assessments Encounter Date Diagnosis (ICD Code) Assessment Notes Treatment Notes Treatment Clinical Notes Section Notes 08/27/2024 Epigastric pain (ICD-10 - R10.13) Endoscopy material was printed We discussed the causes of epigastric pain today. This includes peptic ulcer disease, gastritis, nonulcer dyspepsia, and tumors. We discussed stool DNA testing including false positive and false-negative results and findings at the time of colonoscopy based on positive stool testing results. We recommended further evaluation with upper endoscopy and colonoscopy. We discussed risks and benefits of both procedures today. He understands these and agrees to proceed. 08/27/2024 Abnormal findings in stool (ICD-10 - R19.5) We discussed the causes of epigastric pain today. This includes peptic ulcer disease, gastritis, nonulcer dyspepsia, and tumors. We discussed stool DNA testing including false positive and false-negative results and findings at the time of colonoscopy based on positive stool testing results. We recommended further evaluation with upper endoscopy and colonoscopy. We discussed risks and benefits of both procedures today. He understands these and agrees to proceed. Plan Of Treatment Medication Medication Name Sig Start Date Stop Date Notes MiraLax (colon prep) 17 GM/SCOOP mixed with Gatorade or Crystal Light Orally begin at 5:00 p.m. the day before the procedure for 1 day 08/27/2024 Treatment Notes Assessment Notes Epigastric pain Endoscopy material w as printed Future Test Test Name Order Date UPPER GI ENDOSCOPY 08/27/2024 COLONOSCOPY 08/27/2024 Next Appt Details Follow Up: 1 Year, Reason: Progress Notes * ZHANGJAD EDOB:[birth year] (64 yo M)Acc No.[id number]:08/27/2024 Progress Notes Patient:?JAD ZHANG Provider:?John Jacques MD :1960???Age:64 Y???Sex:Male Pete e:08/27/2024 Address:[address] [place], [place] [id number] Pcp:Scott Ellison MD Subjective: * Chief Complaints: * ???1. Patient presents today for a POSITIVE COLOGUARD. * HPI: ???New symptom(s):? The patient is a pleasant 64-year-old man seen today in consultation at the request of his primary care provider. He returned stool DNA testing in June which was positive. He has no complaints of rectal bleeding or change in his bowel habits. ?He does complain of epigastric pain. This has been present for many years. The pain usually occurs after eating and when he goes for a walk. This pain is epigastric and sharp without radiation. There no precipitating or relieving factors. He denies reflux symptoms and has no dysphagia, hematemesis, or melena. He does not take OTC antacids or prescription medications. He does not use NSAIDs. He is generally very active and healthy. * ROS:?General/Constitutional:?Change in appetite?denies.?Fatigue?denies.?ENT:?Patient denies?difficulty swallowing.?Respiratory:?Patient denies?shortness of breath.?Cardiovascular:?Patient denies?chest pain.?Gastrointestinal:?Comments?See HPI for details.?Genitourinary:?Difficulty urinating?denies.?Incontinence?denies.?Musculoskeletal:?Patient denies?muscle aches.?Skin:?Patient denies?pruritis.?Neurologic:?Patient denies?low back pain.?Psychiatric:?Patient denies?mental or physical abuse.? * Medical History:?Medical His tory Verified. * Surgical History:?Left shoul aidee arthroscopy 01/15. * Family History:?Father: dece ased, diagnosed with HTN (hypertension), Diabetes.?Mother: , diagnosed with Diabetes, HTN (hypertension).? No family history of colon cancer or liver cancer. His mother and maternal aunt had colitis. * Social History:?Tobacco Use:?Tobacco Use/Smoking?Patient is a?nonsmoker.?Drugs/Alcohol:?Alcohol Screen?Did you have a drink containing alcohol in the past year??No,?Points?0,?Interpretation?Negative.?Miscellaneous:?Marital status: . Occupation: retired. * Medications:?Taking One A Da y Men 50 Plus - Tablet as directed Orally , Medication List reviewed and reconciled with the patient * Allergies:?N.K.D.A. Objective: * Vitals:?Wt: 171 lb 6 oz, Ht: 5 ft 9 in, BMI:25.30 Index, BP: 000/00 mm Hg, Temp: 97.7. * Examination: ???General Examination: ?GENERAL APPEARANCE:?in no acute distress.?HEAD:?normocephalic.?EYES:?sclera non-icteric.?ORAL CAVITY:?mucosa moist.?NECK/THYROID:?no lymphadenopathy.?SKIN:?anicteric.?HEART:?S1, S2 normal, no murmurs.?LUNGS:?clear to auscultation bilaterally.?CHEST:?normal shape and expansion.?ABDOMEN:?soft, nontender, nondistended, bowel sounds present, no organomegaly .?EXTREMITIES:?no clubbing, cyanosis, or edema.?PSYCH:?cognitive function intact.? Assessment: * Assessment: 1.?Epigastric pain - R10.13 (Primary)?2.?Abnormal findings in stool - R19.5? We discussed the causes of e pigastric pain today. This includes peptic ulcer disease, gastritis, nonulcer dyspepsia, and tumors. We discussed stool DNA testing including false positive and false-negative results and findings at the time of colonoscopy based on positive stool testing results. We recommended further evaluation with upper endoscopy and colonoscopy. We discussed risks and benefits of both procedures today. He understands these and agrees to proceed. Plan: * Treatment: 2.?Abnormal findings in stoo l? Start MiraLax (colon prep) Powder, 17 GM/SCOOP, mixed with Gatorade or Crystal Light, Orally, begin at 5:00 p.m. the day before the procedure, 1 day, 8.3 Ounce, Refills 0.?Procedure: UPPER GI ENDOSCOPY (Ordered for 08/27/2024) ?Procedure: COLONOSCOPY (Ordered for 08/27/2024) * Immunizations:? Influenza (Not administered - Refused: Patient decision) * Procedure Codes:?3017F COLOR ECTAL CA SCREEN DOC REV, G9903 Pt scrn tbco id as non user, G9745 DOC RSN FOR NOT SCREEN/REC F/U HBP * Preventive Medicine:? ??Counseling:?Care goal follow-up plan:?Above Normal BMI Follow-up?Giving encouragement to exercise,?BMI management provided?Yes.? ??Screenings:?Fall Risk Screening?Fall Risk Assessment:?No falls in the past year,?Screening:?No falls in the past year,?Assessment:?Not performed, no reason specified,?Plan of Care:?Not documented, no reason specified.? * Follow Up:?1 Year * * Sign off status: Completed true * Provider:?John Jacques MD Date:?1 10/28/2023 Generated for Didi larson/Guerita/eTransmitting on:?12/02/2024 07:33 AM EDT History and Physical Notes * HPI (History of Present Illness) Category Sub-Category Detail Notes Category Not es New symptom(s) The patient is a pleasant 64-year-old man seen today in consultation at the request of his primary care provider. He returned stool DNA testing in June which was positive. He has no complaints of rectal bleeding or change in his bowel habits. He does complain of epigastric pain. This has been present for many years. The pain usually occurs after eating and when he goes for a walk. This pain is epigastric and sharp without radiation. There no precipitating or relieving factors. He denies reflux symptoms and has no dysphagia, hematemesis, or melena. He does not take OTC antacids or prescription medications. He does not use NSAIDs. He is generally very active and healthy. Examination Category Sub-Category Detail Notes Category Not es General Examination GENERAL APPEARANCE: in no acute di stress HEAD: normocephalic EYES: sclera non-icteric NECK/THYROID: no lymphadenopathy HEART: S1, S2 normal, no mu rmurs CHEST: normal shape and exp ansion LUNGS: clear to auscultatio n bilaterally ABDOMEN: soft, nontender, non distended, bowel sounds present, no organomegaly SKIN: anicteric EXTREMITIES: no clubbing, cyanosi s, or edema PSYCH: cognitive function i ntact ORAL CAVITY: mucosa moist
--- OUTSIDE RECORDS SUMMARY | 2024-12-02 07:34 | XMS_ITS | Patient Health Record ---
Author Organization [facility] Address [address] [place] [phone] Care Team Providers Care Sap Portal Developer Name Role Phone Scott Ellison MD Primary Care Provider John Rivera Jr Unavailable Allergies No Known Allergies Results Component Value Reference Range Notes Pathology Reviewed date:09/11/2024 09:08:27 AM Interpretation: Performing Lab:[facility], [address] [place] [phone] Notes/Report: Name: Javier Zhang Age/Sex: 64/M : 1960 Unit#: [id number] Attend Dr: John Jacques MD Re09/05/24 Status : [facility] Location: [facility] Disch: SPEC : [id number] RECD : 09/05/24555 STATUS: TORRES OLIVARES NUM: [id number] REENA: 09/05/24-[address]: John Jacques MD ENTERED: 09/05/24-14 32 SP TYPE: Surgical OTHR DR: Scott Ellison MD ORDERED: HE Stain/3, Gross Micro L4, IHC, H. pylori Addendum Addendum 1 Entered: 09/10/24 Immunostain for H py one[place] is negative with appropriate controls. Addendum Signed ____ __(signature on file) Jia Darryl 09/10/24 163 Diagnosis Gastric antrum, biop sy: Gastric antral mucosa with congestion, reactive changes, and minimal chronic inac tive gastritis; negative for intestinal metaplasia and dysplasia. Comment: (B): Immunostain for H. pylori pending; addendum to follow. Clinical History Pre-Op Dx: Other fec al abnormalities, epigastric pain Post-Op Dx: Gastriti s, normal colonoscopy Microscopic Description Microscopic sections reviewed. Material Received Gastric antrum Gross Description Received in formalin labeled ?gastric antrum? is a 0.3 cm mares-pink irregular tissue fragment, submitted in toto in a cassette labeled A. CEDS Special studies orde red and performed: Immunostain for H. pylori on A1. CONTINUED ON NEXT PAGE Name: Javier Zhang rt E Age/Sex: 64/M : 1960 Unit#: [id number] Attend Dr: John Jacques MD Re09/05/24 Status : [facility] Location: [facility] Disch: SPEC : [id number] RECD : 09/05/24 STATUS: TORRES OLIVARES NUM: [id number] REENA: 09/05/24-[address]: John Jacuqes MD ENTERED: 09/05/24 32 SP TYPE: Surgical OTHR DR: Scott Ellison MD ORDERED: HE Stain/3, Gross Micro L4, IHC, H. pylori Copies To: John Jacques MD [facility] [address] [place], [place] [phone] Scott Ellison MD [facility] [address] [place], [place] [phone] Signed (si gnature on file) Jia Andrews 09/08/24 1410 END OF REPORT Reason For Referral No Information Medications Medication SIG (Take, Route, Frequency, Duration) Notes Start Date End Date Status One A Day Men 50 Plus - as directed Orally Active MiraLax (colon prep) 17 GM/SCOOP mixed with Gatorade or Crystal Light Orally begin at 5:00 p.m. the day before the procedure for 1 day 08/27/2024 Active Omeprazole 20 MG 1 capsule 1/2 to 1 h our before morning meal Orally Once a day for 30 day(s) 09/11/2024 Active Immunizations Vaccine Route Administration Date Status [...] Problem Status W/U Status Risk Notes Problem 61265925 Epigastric pain (R10.13) Active confirmed Problem 071172270 Abnormal findings in stool (R19.5) Active confirmed Problem Gastritis (2392001) Gastritis (K29.70) Active confirmed Vital Signs Temperature 97.7 degrees Fahrenheit 08/27/2024 Blood pressure diastolic 00 mm Hg 08/27/2024 Height 5 ft 9 in in 08/27/2024 Blood pressure systolic 000 mm Hg 08/27/2024 Weight 171 lb 6 oz lbs 08/27/2024 BMI 25.30 kg/m2 08/27/2024 Encounters Encounter Location Date Provider Diagnosis [facility] Outpatient [address] [place], [place] [phone] 09/05/2024 John Jacques Jr Abnormal findings in stool R19.5 ; Epigastric pain R10.13 and Gastritis K29.70 [facility] [address] [facility] [address] [place] [phone] 08/27/2024 John Jacques Jr Epigastric pain R10.13 and Abnormal findings in stool R19.5 [facility] [address] [place] [address] 09/11/2024 John Jacques Jr Assessments Encounter Date Diagnosis (ICD Code) Assessment Notes Treatment Notes Treatment Clinical Notes Section Notes 09/05/2024 Epigastric pain (ICD-10 - R10.13) 09/05/2024 Abnormal findings in stool (ICD-10 - R19.5) 08/27/2024 Epigastric pain (ICD-10 - R10.13) Endoscopy [...] He understands these and agrees to proceed. 09/05/2024 Gastritis (ICD-10 - K29.70) Plan Of Treatment Future Test Test Name Order Date UPPER GI ENDOSCOPY 08/27/2024 COLONOSCOPY 08/27/2024 Insurance Providers Payer Name Payer Address Payer Phone Subscriber Number Group Number Insured Name Patient Relationship to Insured Coverage Start Date Coverage End Date MEDICARE OF [place] [address] [place] [address] [id number] JAD CORLEY Self - patient is the insured [employer] [address] [place] [phone] [id number] JAD CORLEY Self - patient is the insured Medical (General) History Surgical History Surgery Date(Month/Year) Left shoulder arthroscopy 01/15
--- OUTSIDE RECORDS SUMMARY | 2024-12-02 07:34 | XMS_ITS ---
Author Organization [facility] Address [address] [place] [address] Care Team Providers Care Assembly And Packing Supervisor Name Role Phone Scott Ellison MD Primary Care Provider Boom Jacques Jr, John Guerrero REASON FOR VISIT pathology Medications Medication SIG (Take, Route, Fr equency, Duration) Notes Start Date End Date Status Omeprazole 20 MG 1 capsule 1/2 to 1 h our before morning meal Orally Once a day for 30 day(s) 09/11/2024 Active Encounters Encounter Location Date Provider Diagnosis [facility] [address] [address] 09/11/2024 John Jacques Jr Plan Of Treatment Medication Medication Name Sig Start Date Stop Date Notes Omeprazole 20 MG 1 capsule 1/2 to 1 h our before morning meal Orally Once a day for 30 day(s) 09/11/2024 Progress Notes * JAD ZHANG EDOB:[birth year] (64 yo M)Acc No.[id number]:09/11/2024 Patient:?JAD ZHANG :1960???Age:64 Y???Sex:Male Address:[address] [place] [address], [address] * Refills? Start Omeprazole Capsule Delayed Release, 20 MG, Orally, 30, 1 capsule 1/2 to 1 hour before morning meal, Once a day, 30 day(s), Refills=1 * true * Date:? Generated for Didi larson/Guerita/Sukhjinderitting on:?12/02/2024 07:33 AM EDT
--- NOTE | 2024-12-02 07:35 | A.OFFVIS_ITS ---
Intake Visit Reasons: Right shoulder pain and weakness Intake Note: Jong is a 64 year old male who presents with complaints of progressively worsening right shoulder pain and weakness. The patient did undergo left shoulder surgery on 01/11/2024. He denies any pain in his left shoulder. He describes his right shoulder pain as sharp and severe in nature. The patient states that his right shoulder pain has gotten worse over the last year in spite of continued non operative treatments. He did injure his right shoulder while chopping and lifting wood. He has had difficulty lifting his right hand above shoulder height. He has had cortisone injections in the past which gave him no relief. He has failed the last 6 weeks of conservative treatment. He has tried Tylenol and anti-inflammatory medicines which gave him minimal relief. He denies any numbness or tingling in either of his upper extremities. 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 Physical Exam Const Other: Well-nourished well-developed very friendly male awake alert and oriented x3 in no acute distress Extrem Other: Bilateral upper extremity examination shows good capillary refill, no skin lesions noted, normal sensation light touch Right shoulder examination shows decreased range of motion when compared to his left shoulder, 3/5 strength with supraspinatus testing, positive impingement signs, tenderness over his acromioclavicular joint, no instability Results Reviewed Results Reviewed: MRI of the patient's right shoulder show severe acromioclavicular joint narrowing, a type 2 acromion, a full-thickness supraspinatus tendon tear Assessment & Plan Assessment & Plan (1) Complete rotator cuff tear or rupture of right shoulder, not specified as traumatic: Code(s): M75.121 - Complete rotator cuff tear or rupture of right shoulder, not specified as traumatic Category: Medical Plan Mr. Bentley presents with progressively worsening right shoulder pain and weakness due to impingement syndrome, acromioclavicular joint arthritis and a full-thickness rotator cuff tear. I had a lengthy discussion with the patient regarding the treatment options. The risks and benefits of right shoulder surgery were discussed at length with the patient. The patient wishes to proceed with surgery. Surgery will most likely involve right shoulder diagnostic arthroscopy with distal clavicle excision, acromioplasty and rotator cuff repair. The patient will be given a prescription for pain medicine at the time of his surgery. He will follow-up as instructed. Feel free to call me at any time should questions regarding his orthopedic management arise. I spent 20 minutes in reviewing the patient's records and imaging studies, seeing the patient and documenting in the medical record. Coding Level of Care Code Est Pt Level 3 (14569) Complex EM visit Add On G2211 Diagnoses Complete rotator cuff tear or rupture of right shoulder, not specified as traumatic M75.121
== END 2024-12-02 07:58 | disposition home or self-care (01) ==
LOC: HO.HOS 07:31
PROVIDERS: PCP Internal Medicine; Visit Provider Orthopaedic Surgery
DX: M75.121 Complete rotator cuff tear or rupture of right shoulder, not specified as traumatic (principal); M75.41 Impingement syndrome of right shoulder; M19.041 Primary osteoarthritis, right hand
CPT/HCPCS: 99213; G2211

== ENCOUNTER → 2024-12-02 07:31 | Outpatient (BNVA) | payer MEDICARE, OTHER, SELFPAY | PROVIDERS: PCP Internal Medicine; Visit Provider Orthopaedic Surgery | DX: M75.121 Complete rotator cuff tear or rupture of right shoulder, not specified as traumatic (principal) | CPT/HCPCS: 99212 ==

== ENCOUNTER 2024-12-08 09:30 | Day surgery (SDC) | payer MEDICARE, OTHER, SELFPAY ==
--- NOTE | 2024-12-05 09:05 | HO.ANESPROP2 ---
Documented by User: Hanna Hutchins NP 12/05/24 09:11 HPI - Anesthesia Eval Consult details Narrative: 64yo M for Right Shoulder Arthroscopy,distal clavical excision,acromioplasty,rotator cuff repair PMFSH Active Problems Active Problems: All Active Problems Complete rotator cuff tear or rupture of right shoulder, not specified as traumatic (Acute) Impingement syndrome of left shoulder (Acute) Right shoulder pain (Acute) Left shoulder pain (Acute) Past Medical History Medical History Positive colorectal cancer screening using Cologuard test Epigastric pain Family History Family history of problems with anesthesia: No Surgical History Surgical History Hx of shoulder surgery (~01/11/24) History of Problems with Anesthesia: No Social History Social History Are you a primary animal daycare provider to a significant other at home: No Do you presently have visiting nurse or other home services: No Patient Tobacco Use Status: Former Tobacco user Tobacco use type: Cigarette Smoked in Last 30 Days: No Use of substances other than those prescribed or required for medical reasons: No Have you been hit, kicked, punched, or otherwise hurt by someone within the past year? If so, by whom?: No Are you DNR?: Yes Advance Directives: No Advance Directives Information Provided: No Advance Directives on File: No Recently lost weight without trying: No How much weight loss: Not applicable Eating poorly because of decreased appetite: No Nutrition screen score: 0 Nutrition Risks: No Nutritional Risk Poor oral hygiene: Yes (missing teeth throughout) Current occupational status: retired Current occupation: Right 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 Meds Allergies Allergy/AdvReac Type Severity Reaction Status Date / Time No Known Allergies Allergy Verified 12/08/24 09:53 Active Medications: Current Medications Cefazolin Sodium/Dextrose (Ancef) 2 gm in 50 mls @ 100 mls/hr IV PREOP ONE Stop: 12/08/24 06:19 Home Medications ?Medication ?Instructions ?Recorded ?Confirmed ?Last Taken ?Type multivitamin 1 tab PO DAILY 09/03/24 12/08/24 Unknown History Exam Pertinent Lab Results Pertinent Lab Results: Laboratory Tests 06/26/24 09:16 WBC 5.9 Hgb 14.7 Hct 44.1 Plt Count 261 Sodium 142 Potassium 4.4 Chloride 109 H Carbon Dioxide 26 BUN 12 Creatinine 0.76 Assessment and Plan Assessment Anesthesia Assessment: Chart Reviewed Final Anesthetic Review Family History of Problems with Anesthesia: No History of Problems with Anesthesia: No Documented by User: Janie Torres MD 12/08/24 10:06 PMFSH Past Medical History Medical History Positive colorectal cancer screening using Cologuard test Epigastric pain Surgical History Surgical History Hx of shoulder surgery (~01/11/24) Social History Social History Are you a primary animal daycare provider to a significant other at home: No Do you presently have visiting nurse or other home services: No Patient Tobacco Use Status: Former Tobacco user Tobacco use type: Cigarette Smoked in Last 30 Days: No Use of substances other than those prescribed or required for medical reasons: No Have you been hit, kicked, punched, or otherwise hurt by someone within the past year? If so, by whom?: No Are you DNR?: Yes Advance Directives: No Advance Directives Information Provided: No Advance Directives on File: No Recently lost weight without trying: No How much weight loss: Not applicable Eating poorly because of decreased appetite: No Nutrition screen score: 0 Nutrition Risks: No Nutritional Risk Poor oral hygiene: Yes (missing teeth throughout) Current occupational status: retired Current occupation: Right 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 Meds Allergies Allergy/AdvReac Type Severity Reaction Status Date / Time No Known Allergies Allergy Verified 12/08/24 09:53 Home Medications ?Medication ?Instructions ?Recorded ?Confirmed ?Last Taken ?Type multivitamin 1 tab PO DAILY 09/03/24 12/08/24 Unknown History Exam Airway Mallampati Class: II TM Dist: >3cm Neck ROM: Full Heart: rrr Lungs: cta Assessment and Plan Assessment Anesthesia Assessment: Anesthesia Plan Discussed Final Anesthetic Review NPO: Yes ASA Class: I Final Preanesthetic Review: No Changes in Pt Med Stat, Meds/Allgs Chart Reviewed, Consent Obtained/Reviewed and Anes Risks/Benef Reviewed Patient Risk: Low Procedure Risk: Low Anesthetic Plan Anesthetic Plan: GA and Regional Block Disposition: Standard PACU
[2024-12-08 09:54] VITALS: BP 129/75; PULSE 54; RESP 16; TEMP 36.7; O2SAT 97; BMI 26.1
--- NOTE | 2024-12-08 10:15 | ECG_ITS ---
Test Reason : pre op Blood Pressure : */* mmHG Vent. Rate : 51 BPM Atrial Rate : 51 BPM P-R Int : 204 ms QRS Dur : 134 ms QT Int : 432 ms P-R-T Axes : 64 -20 26 degrees QTcB Int : 398 ms Sinus bradycardia Right bundle branch block Minimal voltage criteria for LVH, may be normal variant ( R in aVL ) Septal infarct , age undetermined Abnormal ECG No previous ECGs available Referred By: Janie Torres Electronically Signed By: Altaf Zhao
[2024-12-08] MEDS: Lactated Ringers 1,000 ML 100 ML IVCONT (10:39)
--- NOTE | 2024-12-08 11:02 | PC.NURSE ---
EKG results shared with Dr. Torres. Copy given to patient as ordered by her. No new orders at this time, may proceed with surgery.
[2024-12-08 13:15] VITALS: BP 110/48; PULSE 54; RESP 16; TEMP 36.8; O2SAT 98
[2024-12-08] MEDS: cefTRIAXone sodium 1 GM VIAL IVPUSH (13:19)
[2024-12-08 13:20] VITALS: BP 109/54; PULSE 53; RESP 16; O2SAT 97
[2024-12-08 13:25] VITALS: BP 113/69; PULSE 57; RESP 16; O2SAT 95
[2024-12-08 13:30] VITALS: BP 122/58; PULSE 56; RESP 16; O2SAT 95
[2024-12-08 13:41] VITALS: BP 120/63; PULSE 57; RESP 16; TEMP 36.6; O2SAT 95
--- NOTE | 2024-12-09 06:33 | P.BOP_ITS ---
Brief Operative Note Date of Service: 12/08/24 Pre-op diagnosis: Right shoulder impingement syndrome, right shoulder acromioclavicular joint arthritis, right shoulder rotator cuff tear Post-op diagnosis: same Procedure: Right shoulder diagnostic arthroscopy with right shoulder arthroscopic distal clavicle excision, right shoulder arthroscopic acromioplasty, right shoulder mini-open rotator cuff repair Implants: Two suture anchors ([employer]ai [employer]hew Twinfix anchors with #2 Ultrabraid suture) Surgeon: Alcides Stone MD Anesthesia: GETA and regional Was an Land Acquisition Analyst used for this Procedure?: No Estimated blood loss (mL): 15 Pathology: none sent Condition: stable Disposition: PACU
--- NOTE | 2024-12-09 06:34 | P.OP_ITS ---
Operative Note Operative Note Date of Service: 12/08/24 Narrative: After the patient was identified as Jong Bentley and his right shoulder was initialed by myself the patient was brought to the holding area where a right shoulder interscalene regional block was performed by the anesthesiologist in routine fashion. The patient was then brought to the operating room where general anesthesia was induced by the anesthesiologist in routine fashion. The patient was given 2 g of IV Ancef preoperatively for infection prophylaxis. Examination under anesthesia of the patient's right shoulder showed full passive range of motion of the patient's right shoulder when compared to the left. The patient was gently positioned in the beach chair position with all bony prominences well padded. The patient's right shoulder region and upper extremity were prepped and draped in sterile fashion. A formal time-out was completed. A #11 scalpel blade was used to make a posterior portal 2 cm inferior and 1 cm medial to the posterolateral corner of the acromion. Blunt trocar technique was used to enter the glenohumeral joint in routine fashion. An anterior portal was made just lateral to the coracoid process after proper positioning was confirmed using a spinal needle. Diagnostic arthroscopy showed minimal degenerative changes of the glenoid and humeral head articular surfaces. There was a full-thickness tear of the supraspinatus tendon. There was degenerative fraying of the biceps tendon measuring approximately 25% of the tendon width. The frayed fibers were debrided using the arthroscopic shaver. Following the debridement the remainder of the tendon was intact. There was no inflammation of the anterior joint capsule. The arthroscope was then placed from the posterior portal into the subacromial space. A lateral portal was made 2 fingerbreadths lateral to the anterior lateral corner of the acromion. The ArthroCare Wand was used to ablate soft tissues along the undersurface of the acromion as well as to excise the coracoacromial ligament. There was a sharp sp ur along the undersurface of the acromion which was removed using the hooded bur. The arthroscope was then placed into the lateral portal and the acromioplasty was completed with the bur in the posterior portal using the posterior aspect of the acromion as a cutting block. The ArthroCare Wand was then brought in through the anterior portal and was used to ablate soft tissues along the acromioclavicular joint and distal clavicle. The posterior and superior ligamentous structures were left intact. A distal clavicle excision of 8 mm was performed using the hooded bur. Any remaining bursal tissue was removed using the arthroscopic shaver. The subacromial space was irrigated and then drained. All arthroscopic instruments were removed. Sterile gloves were changed and the shoulder was once again prepped with Betadine. A #15 scalpel blade was used to extend the lateral portal to the lateral edge of the acromion. The subacromial tissues were dissected using electrocautery down to the superficial deltoid fascia. The trocar split in the anterior raphe of the deltoid was then extended to the lateral edge of the acromion using electrocautery and curved James scissors. Any remaining bursal tissue was removed using curved James scissors. Subacromial and subdeltoid adhesions were bluntly dissected. The undersurface of the acromion was palpated and it was smooth. A #2 Ethibond tag suture was placed into the supraspinatus tendon. The tendon was easily mobilized to its insertion point on the glenoid. The wound was irrigated with copious amounts of normal saline solution. Two suture anchors were placed into the greater tuberosity in routine fashion. The rotator cuff repair was then performed using horizontal mattress sutures under minimal tension with the patient's elbow at their side. Following the repair the shoulder was taken through a full range of motion. The repair was stable. The wound was irrigated with copious amounts of normal saline solution. The superfi cial and deep deltoid fascia were closed with #1 Vicryl [id number] interrupted suture. The wound was once again irrigated. The subcutaneous tissues were closed with 2-0 Vicryl interrupted suture. The skin was closed with 3-0 Prolene subcuticular suture and Steri-Strips. The anterior and posterior portals were closed with 3-0 nylon interrupted suture. Dry sterile dressing was placed over all incisions. The patient's right upper extremity was placed into a sling. The patient was awoken and extubated in the operating room. The patient was transferred to the recovery room in stable condition.
== END 2024-12-08 14:05 | disposition home or self-care (01) ==
PROVIDERS: Visit Provider Orthopaedic Surgery
PROC: (CPT 29805; principal; 2024-12-08 11:00)
DX: M75.101 Unspecified rotator cuff tear or rupture of right shoulder, not specified as traumatic (principal); M75.41 Impingement syndrome of right shoulder; M19.011 Primary osteoarthritis, right shoulder; M25.511 Pain in right shoulder; R53.1 Weakness; Z66 Do not resuscitate; Z98.890 Other specified postprocedural states; Z87.891 Personal history of nicotine dependence
CPT/HCPCS: 23412; 29824; 29826; 93005; C1713; J0131; J0171; J0665; J0690; J0696; J1100; J2003; J2250; J2371; J2405; J2704; J2795; J3010

== ENCOUNTER → 2024-12-08 09:30 | Outpatient (BNV) | payer MEDICARE, OTHER, SELFPAY | PROVIDERS: Visit Provider Orthopaedic Surgery | DX: M75.41 Impingement syndrome of right shoulder (principal); M19.011 Primary osteoarthritis, right shoulder; S46.011A Strain of muscle(s) and tendon(s) of the rotator cuff of right shoulder, initial encounter | CPT/HCPCS: 23412; 29824 ==

== ENCOUNTER → 2024-12-08 10:15 | Outpatient (BNV) | payer MEDICARE, OTHER, SELFPAY | PROVIDERS: Visit Provider Internal Medicine Cardiovascular Disease | DX: I45.10 Unspecified right bundle-branch block (principal); R00.1 Bradycardia, unspecified | CPT/HCPCS: 93010 ==

== ENCOUNTER 2024-12-17 10:30 | Outpatient (AMB) | payer MEDICARE, OTHER, SELFPAY ==
--- NOTE | 2024-12-17 10:31 | A.OFFPC_ITS ---
Vital Signs 12/17/24 10:35 Weight 180 lb BP 120/74 Blood Pressure Location Lt brachial Position Sitting Pulse 59 Pulse Source Pulse Oximeter Temp 97.5 F Temp Source Temporal Artery Scan Pulse Oximetry (%) 99 Oxygen Delivery Method Room Air Intake Visit Reasons: Routine Multiple Coil Winder Required: No Accompanied by: Spouse Allergies No Known Allergies Allergy (Verified 12/17/24 10:32) Tobacco use date assessed: 12/17/24 Fall risk assessment: No Falls in past year Last assessed Fall Risk: 12/17/24 Dental Screening Dental Screen Date: 12/17/24 Did you have a dental visit in the last 12 months?: Yes Did you have a dental problem in the last 6 months where you did not have access to dental care?: No [facility] Medical History (Updated 12/17/24 @ 11:05 by Jaylen Sanchez MD) Right bundle branch block Positive colorectal cancer screening using Cologuard test Epigastric pain Surgical History Hx of shoulder surgery (~01/11/24) Family History (Updated 12/17/24 @ 10:42 by Gabby Spivey CMA) Mother BP (high blood pressure) Diabetes Father BP (high blood pressure) Cancer Social History Housing: House Are you a primary rn wound care to a significant other at home: No Do you presently have visiting nurse or other home services: No Patient Tobacco Use Status: Former Tobacco user Tobacco use type: Cigarette e-Cigarette/Vaping Use: Former Use service: No Current occupational status: retired 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 1. Little interest or pleasure in doing things: not at all 2. Feeling down, depressed, or hopeless: not at all 3. Trouble falling or staying asleep, or sleeping too much: not at all 4. Feeling tired or having little energy: not at all 5. Poor appetite or overeating: not at all 6. Feeling bad about yourself - or that you are a failure or have let yourself or your family down: not at all 7. Trouble concentrating on things, such as reading the newspaper or watching television: not at all 8. Moving or speaking so slowly that other people could have noticed. Or the opposite - being so fidgety or restless that you have been moving around a lot more than usual: not at all 9. Thoughts that you would be better off or of hurting yourself in some way: not at all Total score: 0 Source: Developed by Drs. Jong Rosado, Maryam Tyler, Carroll Alexander and colleagues, with an educational héctor from [employer]. Thrive Questionnaire Date Thrive assessed: 12/17/24 I am a: Patient Within the past 12 months, did the food you bought not last and you didn't have the money to get more?: Never true Within the past 12 months, did you worry whether your food would run out before you got money to buy more?: Never true Do you have trouble paying for medicines?: No Do you have trouble getting transportation to medical appointments?: No Do you have trouble paying your heating and electricity bill?: No Do you have trouble taking care of your child, family member or friend?: No Do you have trouble with day-to-day activities such as bathing, preparing meals, shopping, managing finances, etc.?: No Are you currently unemployed and looking for a job?: No Are you interested in more education?: No THRIVE Score: 0 AUDIT C Alcohol Use Questionnaire (AUDIT-C) 1. How often do you have a drink containing alcohol?: Never 3. How often do you have six or more drinks on one occasion?: Never Total Score: 0 DEBBY-7 AMB Questionnaire DEBBY-7 Date DEBBY - 7 assessed: 12/17/24 Feeling nervous, anxious, or on edge: 0 = Not at all Not being able to stop or control worryin = Not at all Worrying too much about different things: 0 = Not at all Trouble relaxin = Not at all Being so restless that it is hard to sit still: 0 = Not at all Becoming easily annoyed or irritable: 0 = Not at all Feeling afraid as if something awful might happen: 0 = Not at all Total DEBBY-7 score (0-4 normal; 5-9 mild; 10-14 moderate; 15-21 severe): 0 Source: Developed by Drs. Jong Rosado, Maryam Tyler, Carroll Alexander and colleagues, with an educational héctor from [employer]. Physical exam (Primary Care) Vital Signs: Last Vital Signs Temp 97.5 F 12/17/24 10:35 Pulse 59 12/17/24 10:35 BP 120/74 12/17/24 10:35 Pulse Ox 99 12/17/24 10:35 Oxygen Delivery Method Room Air 12/17/24 10:35 Tobacco/Smoking Status: Tobacco use Status Tobacco use date assessed 12/17/24 12/17/24 10:34 Patient Tobacco Use Status Former Tobacco user 12/17/24 10:34 Tobacco use type Cigarette 12/17/24 10:34 e-Cigarette/Vaping Use Former Use 12/17/24 10:34 PHQ-9: PHQ-9 Score PHQ-9: Total score 0 12/17/24 10:43 Thrive Assessment: Date of Thrive Assessment Date Thrive assessed 12/17/24 12/17/24 10:34 Coding Level of Care Code New Pt Level 4 (20894) Complex EM visit Add On G2211 Diagnoses Right bundle branch block I45.10 Assessment & Plan Assessment & Plan (1) Right bundle branch block: Code(s): I45.10 - Unspecified right bundle-branch block Category: Medical Plan: EKG revd with patient. Currently has no symptoms. BP in range, LDL in range, non smoker, very active and exercises regularly. Reassurance Plan History of Present Illness The patient is a 64-year-old male presenting with follow-up for a right bundle branch block noted on a pre-surgical EKG for right shoulder surgery. He recently underwent surgical correction involving the removal of a bone spur and repair of the tendon and rotator cuff in the right shoulder. The right shoulder issue arose from a bone spur causing mechanical interference with the biceps tendon. Previously, the left shoulder had been treated for a similar problem. This patient's history is significant for healthy engagement in physical activities, including regular gym attendance and farm work. Following the surgical evaluation, he was informed of an ECG finding indicating a right bundle branch block, with no prior similar findings as this was his first recorded EKG. He remains asymptomatic, with the ability to engage in all routine activities. Social History - Engages in regular physical activity, attending the gym three to four times a week. 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 - Long-term non-smoker, having quit smoking years prior. Review of Systems - Cardiac: Denies chest pain, palpitations, or dyspnea. - Musculoskeletal: Denies joint pain beyond the recent shoulder procedural site. - General: Reports ability to perform normal activities and exercise without limitations. Physical Exam General: Cooperative and healthy appearing Nutritional Appearance: Well nourished Orientation/consciousness: Patient oriented x3 Limitations: No limitations Head: Normal to inspection General: Appearance normal, both eyes and all related structures Neck: Normal visual inspection Chest: Normal palpation of entire chest wall Respiratory: Normal respiratory effort Neurology: Patient oriented x3 Right shoulder in a sling Results - Tests: Abnormal EKG showing a right bundle branch block noted during pre- operative evaluation for shoulder surgery. Plan The identified right bundle branch block does not necessitate immediate intervention due to the absence of symptomatic evidence of heart disease. The patient was informed that his ability to perform daily physical activities, inc luding strenuous farm work and regular exercise, remains uncompromised. Future routine monitoring and annual health check-ups are currently sufficient for managing this cardiac anomaly. Patient was informed and verbally consented to the use of an ambient scribe for clinic note documentation during this visit. Discussion Notes During the discussion with the patient, I clarified that the right bundle branch block observed on the EKG represents an electrical conduction issue in the heart. I assured him that this is a common finding, not indicating an increased risk of cardiac events like myocardial infarction. The patient was educated on the distinction between electrical and mechanical heart activities and the implications of his EKG findings. He expressed understanding and noted his dimple lity to engage in regular physical activities, asserting a good level of cardiovascular health. We also discussed plans for ongoing health monitoring to ensure the patient's continued well-being, stressing that no immediate interventions are needed. Guidance was given for reassessment should symptoms arise in the future. Patient Instructions - Continue all regular physical activities as tolerated. - Schedule routine annual check-ups. - Return promptly if any new symptoms such as chest pain or dyspnea develop. - Maintain a healthy lifestyle, avoiding smoking and managing diet and exercise.
[2024-12-17 10:35] VITALS: BP 120/74; PULSE 59; TEMP 36.4; O2SAT 99
--- OUTSIDE RECORDS SUMMARY | 2024-12-17 12:20 | XMS_ITS ---
Author Organization [facility] Address [address] [place] [id number] Care Team Providers Care Forest Resources Professor Name Role Phone Scott Ellison MD Primary Care Provider Boom Jacques Jr, John Guerrero [phone] REASON FOR VISIT pathology Medications Medication SIG (Take, Route, Fr equency, Duration) Notes Start Date End Date Status Omeprazole 20 MG 1 capsule 1/2 to 1 h our before morning meal Orally Once a day for 30 day(s) 09/11/2024 Active Encounters Encounter Location Date Provider Diagnosis [facility] [address] [address] 09/11/2024 John Jacques Jr Plan Of Treatment Medication Medication Name Sig Start Date Stop Date Notes Omeprazole 20 MG 1 capsule 1/2 to 1 h our before morning meal Orally Once a day for 30 day(s) 09/11/2024 Progress Notes * JAD ZHANG EDOB:[birth year] (64 yo M)Acc No.[id number]:09/11/2024 Patient:?JAD ZHANG :1960???Age:64 Y???Sex:Male Address:[address] [place] [address], [id number] * Refills? Start Omeprazole Capsule Delayed Release, 20 MG, Orally, 30, 1 capsule 1/2 to 1 hour before morning meal, Once a day, 30 day(s), Refills=1 * true * Date:? Generated for Didi larson/Guerita/Sukhjinderitting on:?12/17/2024 12:20 PM EDT
--- OUTSIDE RECORDS SUMMARY | 2024-12-17 12:20 | XMS_ITS ---
Author Organization [facility] Address [address] [place] [id number] Care Team Providers Care Criminal Justice Faculty Name Role Phone Scott Ellison MD Primary Care Provider John Rivera Jr Unavailable [phone] Allergies No Known Allergies REASON FOR VISIT [...] Problem Status W/U Status Risk Notes Problem [id number] Epigastric pain (R10.13) Active confirmed Problem [id number] Abnormal findings in stool (R19.5) Active confirmed Vital Signs Temperature 97.7 degrees Fahrenheit 08/27/20 24 Blood pressure systolic 000 mm Hg 08/27/20 24 Blood pressure diastolic 00 mm Hg 024 Height 5 ft 9 in in 08/27/2024 Weight 171 lb 6 oz lbs 08/27/2024 BMI 25.30 kg/m2 08/27/2024 Encounters Encounter Location Date Provider Diagnosis [facility] [address] [facility] [address] [place] [address] 08/27/2024 John Jacques Jr Epigastric pain R10.13 [...] Notes * ZHANGJAD EDOB:[birth year] (64 yo M)Acc No.[id number]:08/27/2024 Progress Notes Patient:?JAD ZHANG Provider:?John Jacques MD :1960???Age:64 Y???Sex:Male Pete e:08/27/2024 Address:[address] [place], [place] [id number] Pcp:Scott Ellison MD Subjective: * Chief Complaints: [...] MD Date:?1 10/28/2023 Generated for Didi larson/Guerita/eTransmitting on:?12/17/2024 12:20 PM EDT History and Physical Notes * HPI [...]
--- OUTSIDE RECORDS SUMMARY | 2024-12-17 12:20 | XMS_ITS | Patient Health Record ---
Author Organization [facility] Address [address] [place] [address] Care Team Providers Care Clinical Biochemist Name Role Phone Scott Ellison MD Primary Care Provider John Rivera Jr Unavailable Allergies No Known Allergies Results Component Value Reference Range Notes Pathology Reviewed date:09/11/2024 09:08:27 AM Interpretation: Performing Lab:[facility], [address] [place] [phone] Notes/Report: Name: Javier Zhang Age/Sex: 64/M : 1960 Unit#: [id number] Attend Dr: John Jacques MD Re09/05/24 Status : [facility] Disch: SPEC : [id number] RECD : 09/05/24354 STATUS: TORRES OLIVARES NUM: [id number] REENA: 09/05/24-[address]: John Jacques MD [...] rt E Age/Sex: 64/M : 1960 Unit#: [id number] Attend Dr: John Jacques MD Re09/05/24 Status : [facility] Disch: SPEC : [id number] RECD : 09/05/24 STATUS: TORRES OLIVARES NUM: [id number] REENA: 09/05/24-[address]: John Jacques MD ENTERED: 09/05/24 32 SP TYPE: Surgical OTHR DR: Scott Ellison MD ORDERED: HE Stain/3, Gross Micro L4, IHC, H. pylori Copies To: John Jacques MD [facility] [address] [place], [place] [phone] Scott Ellison MD [facility] [address] [place], [place] [phone] Signed (si gnature on file) Jia Andrews [...] Problem Status W/U Status Risk Notes Problem 24025501 Epigastric pain (R10.13) Active confirmed Problem 931489882 Abnormal findings in stool (R19.5) Active confirmed Problem Gastritis (3959712) Gastritis (K29.70) Active confirmed Vital Signs Temperature 97.7 degrees Fahrenheit 08/27/2024 Blood pressure diastolic 00 mm Hg 08/27/2024 Height 5 ft 9 in in 08/27/2024 Blood pressure systolic 000 mm Hg 08/27/2024 Weight 171 lb 6 oz lbs 08/27/2024 BMI 25.30 kg/m2 08/27/2024 Encounters Encounter Location Date Provider Diagnosis [facility] [place] Outpatient [address] [place], [place] [phone] 09/05/2024 oJhn Jacques Jr Abnormal findings in stool R19.5 ; Epigastric pain R10.13 and Gastritis K29.70 [facility] 10 [facility] [address] [place] [phone] 08/27/2024 John Jacques Jr Epigastric pain R10.13 and Abnormal findings in stool R19.5 [facility] [address] [place] [address] 09/11/2024 John Jacques Jr Assessments Encounter Date [...] Date MEDICARE OF [place] [address] [place] [address] [id number] JAD CORLEY Self - patient is the insured [employer] [address] [place] [address] [id number] JAD CORLEY Self - patient is the insured Medical (General) History Surgical History Surgery Date(Month/Year) Left shoulder arthroscopy 01/15
--- OUTSIDE RECORDS SUMMARY | 2024-12-17 12:20 | XMS_ITS ---
Author Organization [facility] Address [address] [place] [address] Care Team Providers Care Computer Information Science Professor Name Role Phone Scott Ellison MD Primary Care Provider John Rivera Jr [phone] REASON FOR VISIT epigastric pain,abnormall findings in stool Problems Problem Type SNOMED Code ICD Code Onset Dates Problem Status W/U Status Risk Notes Problem Gastritis (0494995) Gastritis (K29.70) Active confirmed Encounters Encounter Location Date Provider Diagnosis [facility] Outpatient [address] [place] [phone] 09/05/2024 John Jacques Jr Abnormal findings in [...] * JAD ZHANG EDOB:[birth year] (64 yo M)Acc No.[id number]:09/05/2024 EGD and COL/MAC Patient:?JAD ZHANG Provider:?John Jacques MD :1960???Age:64 Y???Sex:Male Pete e:09/05/2024 Address:[address] [place] [address] Pcp:Scott Ellison MD Subjective: * Chief Complaints: * ???1. Epigastric pain,abnorm all findings in stool. * Medical History:? Objective: * Vitals:? Assessment: * Assessment: 1.?Abnormal findings in stoo l - R19.5 (Primary)???2.?Epigastric pain - R10.13???3.?Gastritis - K29.70??? Plan: * Treatment: * Procedure Codes:?91561 DIAGN OSTIC COLONOSCOPY, 0528F RCMND FLW-UP 10 [...] MD Date:?1 11/06/2023 Generated for Didi larson/Guerita/eTransmitting on:?12/17/2024 12:19 PM EDT
== END 2024-12-17 11:03 | disposition home or self-care (01) ==
LOC: HO.HMCHD 10:30
PROVIDERS: PCP Internal Medicine; Visit Provider Internal Medicine
DX: I45.10 Unspecified right bundle-branch block (principal)

== ENCOUNTER → 2024-12-17 10:30 | Outpatient (BNVA) | payer MEDICARE, OTHER, SELFPAY | PROVIDERS: Visit Provider Internal Medicine | DX: I45.10 Unspecified right bundle-branch block (principal) | CPT/HCPCS: 99202 ==

== ENCOUNTER 2024-12-23 10:41 | Outpatient (AMB) | payer MEDICARE, OTHER, SELFPAY ==
--- NOTE | 2024-12-23 10:44 | MHC.OFFVIS ---
Intake Visit Reasons: PO RT shoulder 12/08/24 Intake Note: Jong is a 64 year old male who presents today post-operatively after undergoing right shoulder arthroscopic surgery on 12/08/24. Patient reports he is doing well. He was not able to tolerate Oxycodone. He has been resting his shoulder as per my instructions. He denies any fevers or chills. Allergies No Known Allergies Allergy (Verified 12/23/24 10:49) Medication List - Last Reconciled 12/23/24 by Alcides Stone MD multivitamin 1 tab PO DAILY omeprazole 20 mg PO DAILY PFSH Medical History (Updated 12/17/24 @ 11:05 by Jaylen Sanchez MD) Right bundle branch block Positive colorectal cancer screening using Cologuard test Epigastric pain Surgical History Hx of shoulder surgery (~01/11/24) Family History (Updated 12/17/24 @ 10:42 by Gabby Spivey CMA) Mother BP (high blood pressure) Diabetes Father BP (high blood pressure) Cancer Social History Housing: House Are you a primary transitional care nurse to a significant other at home: No Do you presently have visiting nurse or other home services: No Patient Tobacco Use Status: Former Tobacco user Tobacco use type: Cigarette e-Cigarette/Vaping Use: Former Use service: No Current occupational status: retired 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 Bentley is doing well after undergoing right shoulder rotator cuff repair surgery on 12/08/2024. His sutures were removed and Steri-Strips placed over his incisions. I gave him a prescription to go to formal physical therapy for passive range of motion exercises only. I will hold off on active lifting until he is 8 weeks out from surgery. I will see him back at that time. Feel free to call me at any time should questions regarding his orthopedic management arise. Orders: Orders PT Evaluation and Treatment Today M75.121 - Complete rotator cuff tear or rupture of right shoulder, not specified as traumatic Coding Level of Care Code Global (85922) Diagnoses Complete rotator cuff tear or rupture of right shoulder, not specified as traumatic M75.121
--- OUTSIDE RECORDS SUMMARY | 2024-12-23 12:50 | XMS_ITS | Patient Health Record ---
Author Organization [facility] Address [address] [place] [address] Care Team Providers Care Acid Polymerization Operator Name Role Phone Scott Ellison MD Primary Care Provider John Rivera Jr Unavailable [phone] Allergies No Known Allergies Results Component Value Reference Range Notes Pathology Reviewed date:09/11/2024 09:08:27 AM Interpretation: Performing Lab:[facility], [address] [place] [phone] Notes/Report: Name: Javier Zhang Age/Sex: 64/M : 1960 Unit#: [id number] Attend Dr: John Jacques MD Re09/05/24 Status : [facility] Location: [facility] Disch: SPEC : [id number] RECD : 09/05/24716 STATUS: TORRES OLIVARES NUM: [id number] REENA: 09/05/24-[address]: John Jacques MD ENTERED: 09/05/24-14 32 SP TYPE: Surgical OTHR DR: Scott Ellison MD ORDERED: HE Stain/3, Gross Micro L4, IHC, H. pylori Addendum Addendum 1 Entered: 09/10/24 Immunostain for H py one[place] is negative with appropriate controls. Addendum Signed ____ __(signature on file) Jia [place] 09/10/24 163 Diagnosis Gastric antrum, biop sy: [...] rt E Age/Sex: 64/M : 1960 Unit#: [id number] Attend Dr: John Jacques MD Re09/05/24 Status : [facility] Location: [facility] Disch: SPEC : [id number] RECD : 09/05/24 STATUS: TORRES OLIVARES NUM: [id number] REENA: 09/05/24-[address]: John Jacques MD ENTERED: 09/05/24 32 SP TYPE: Surgical OTHR DR: Scott Ellison MD ORDERED: HE Stain/3, Gross Micro L4, IHC, H. pylori Copies To: John Jacques MD [facility] [address] [place], [place] [phone] Scott Ellison MD [facility] [address] [place], [place] [phone] Signed (si gnature on file) Jia Andrews [...] Problem Status W/U Status Risk Notes Problem 97220603 Epigastric pain (R10.13) Active confirmed Problem 403640055 Abnormal findings in stool (R19.5) Active confirmed Problem Gastritis (9383454) Gastritis (K29.70) Active confirmed Vital Signs Temperature 97.7 degrees Fahrenheit 08/27/2024 Blood pressure diastolic 00 mm Hg 08/27/2024 Height 5 ft 9 in in 08/27/2024 Blood pressure systolic 000 mm Hg 08/27/2024 Weight 171 lb 6 oz lbs 08/27/2024 BMI 25.30 kg/m2 08/27/2024 Encounters Encounter Location Date Provider Diagnosis [facility] [place] Outpatient [address] [place], [place] [phone] 09/05/2024 John Jacques Jr Abnormal findings in stool R19.5 ; Epigastric pain R10.13 and Gastritis K29.70 [facility] [address] [facility] [address] [place] [phone] 08/27/2024 John Jacques Jr Epigastric pain R10.13 and Abnormal findings in stool R19.5 [facility] [address] [place] [address] 09/11/2024 John Jacques Jr Assessments Encounter Date [...] Date MEDICARE OF [place] [address] [place] [address] [id number] JAD CORLEY Self - patient is the insured [employer] [address] [place] [id number] JAD CORLEY Self - patient is the insured Medical (General) History Surgical History Surgery Date(Month/Year) Left shoulder arthroscopy 01/15
--- OUTSIDE RECORDS SUMMARY | 2024-12-23 12:50 | XMS_ITS ---
Author Organization [facility] Address [address] [place] [phone] Care Team Providers Care Technical Adjuster Name Role Phone Scott Ellison MD Primary Care Provider Boom Jacques Jr, John Guerrero REASON FOR VISIT pathology Medications Medication SIG (Take, Route, Fr equency, Duration) Notes Start Date End Date Status Omeprazole 20 MG 1 capsule 1/2 to 1 h our before morning meal Orally Once a day for 30 day(s) 09/11/2024 Active Encounters Encounter Location Date Provider Diagnosis [facility] [address] 09/11/2024 John Jacques Jr Plan Of Treatment Medication Medication Name Sig Start Date Stop Date Notes Omeprazole 20 MG 1 capsule 1/2 to 1 h our before morning meal Orally Once a day for 30 day(s) 09/11/2024 Progress Notes * JAD ZHANG EDOB:[birth year] (64 yo M)Acc No.[id number]:09/11/2024 Patient:?JAD ZHANG :1960???Age:64 Y???Sex:Male Address:[address] [place] [address], [address] * Refills? Start Omeprazole Capsule Delayed Release, 20 MG, Orally, 30, 1 capsule 1/2 to 1 hour before morning meal, Once a day, 30 day(s), Refills=1 * true * Date:? Generated for Didi larson/Guerita/Sukhjinderitting on:?12/23/2024 12:50 PM EDT
--- OUTSIDE RECORDS SUMMARY | 2024-12-23 12:50 | XMS_ITS ---
Author Organization [facility] Address [address] [place] [phone] Care Team Providers Care Top Former Name Role Phone Scott Ellison MD Primary Care Provider John Rivera Jr Unavailable [phone] Allergies No Known Allergies REASON FOR [...] Problem Status W/U Status Risk Notes Problem 74394415 Epigastric pain (R10.13) Active confirmed Problem 605611594 Abnormal findings in stool (R19.5) Active confirmed Vital Signs Temperature 97.7 degrees Fahrenheit 08/27/20 24 Blood pressure systolic 000 mm Hg 08/27/20 24 Blood pressure diastolic 00 mm Hg 024 Height 5 ft 9 in in 08/27/2024 Weight 171 lb 6 oz lbs 08/27/2024 BMI 25.30 kg/m2 08/27/2024 Encounters Encounter Location Date Provider Diagnosis [facility] [address] [facility] [address] [place] [address] 08/27/2024 John Jacques Jr Epigastric pain R10.13 [...] Notes * ZHANGJAD EDOB:[birth year] (64 yo M)Acc No.[id number]:08/27/2024 Progress Notes Patient:?JAD ZHANG Provider:?John Jacques MD :1960???Age:64 Y???Sex:Male Pete e:08/27/2024 Address:[address] [place], [place] [phone] Pcp:Scott Ellison MD Subjective: * Chief Complaints: [...] MD Date:?1 10/28/2023 Generated for Didi larson/Guerita/eTransmitting on:?12/23/2024 12:50 PM EDT History and Physical Notes * [...]
--- OUTSIDE RECORDS SUMMARY | 2024-12-23 12:50 | XMS_ITS ---
Author Organization [facility] Address [address] [place] [address] Care Team Providers Care Tierce Filler Name Role Phone Scott Ellison MD Primary Care Provider John Rivera Jr [phone] REASON FOR VISIT epigastric pain,abnormall findings in stool Problems Problem Type SNOMED Code ICD Code Onset Dates Problem Status W/U Status Risk Notes Problem Gastritis (9806529) Gastritis (K29.70) Active confirmed Encounters Encounter Location Date Provider Diagnosis [facility] [place] [address] [place] [phone] 09/05/2024 John Jacques Jr Abnormal findings in [...] * JAD ZHANG EDOB:[birth year] (64 yo M)Acc No.[id number]:09/05/2024 EGD and COL/MAC Patient:?JAD ZHANG Provider:?John Jacques MD :1960???Age:64 Y???Sex:Male Pete e:09/05/2024 Address:[address] [place] [address] Pcp:Scott Ellison MD Subjective: * Chief Complaints: * ???1. Epigastric pain,abnorm all findings in stool. * Medical History:? Objective: * Vitals:? Assessment: * Assessment: 1.?Abnormal findings in stoo l - R19.5 (Primary)???2.?Epigastric pain - R10.13???3.?Gastritis - K29.70??? Plan: * Treatment: * Procedure Codes:?49183 DIAGN OSTIC COLONOSCOPY, 0528F RCMND FLW-UP 10 [...] MD Date:?1 11/06/2023 Generated for Didi larson/Guerita/eTransmitting on:?12/23/2024 12:49 PM EDT
== END 2024-12-23 11:01 | disposition home or self-care (01) ==
LOC: HO.HOS 10:42
PROVIDERS: PCP Internal Medicine; Visit Provider Orthopaedic Surgery
DX: M75.121 Complete rotator cuff tear or rupture of right shoulder, not specified as traumatic (principal)
CPT/HCPCS: 99024

== ENCOUNTER → 2024-12-23 10:41 | Outpatient (BNVA) | payer MEDICARE, OTHER, SELFPAY | PROVIDERS: PCP Internal Medicine; Visit Provider Orthopaedic Surgery | DX: Z47.89 Encounter for other orthopedic aftercare (principal); M75.121 Complete rotator cuff tear or rupture of right shoulder, not specified as traumatic; Z98.890 Other specified postprocedural states | CPT/HCPCS: 99212 ==

== ENCOUNTER 2025-01-08 14:52 | Outpatient (AMB) | payer MEDICARE, OTHER, SELFPAY ==
--- NOTE | 2025-01-08 14:51 | A.OFFPC_ITS ---
Vital Signs 01/08/25 14:53 Height 5 ft 9 in Weight 176 lb BMI 26.0 BP 152/90 H Respiration 14 Pulse 80 Pulse Source Pulse Oximeter Temp 97.7 F Temp Source Temporal Artery Scan Pulse Oximetry (%) 98 Oxygen Delivery Method Room Air Intake Visit Reasons: Same Day Appt / Sty Auto Phone Installer Required: No Accompanied by: Self / Same As Patient Allergies No Known Allergies Allergy (Verified 01/08/25 14:52) Tobacco use date assessed: 01/08/25 Fall risk assessment: No Falls in past year Last assessed Fall Risk: 01/08/25 Dental Screening Dental Screen Date: 01/08/25 Did you have a dental visit in the last 12 months?: Yes Did you have a dental problem in the last 6 months where you did not have access to dental care?: No Was dental information given to patient?: Patient has dentist HPI HPI Comments History of Present Illness Details 64 y/o with pmh GERD, recent right shoul aidee surgery presenting for stye. Has had recurrent stye right lower for the past ~1 year. Recently worsened with redness extending below the right eye. Was seen in urgent care 12/29 for symptoms placed on antibiotic augmentin and topical with some but not complete resolution. No eye pain or discharge. No vision changes ROS see HPI PHYSICAL EXAM: GENERAL: Alert and oriented x 3. NAD EYES: EOMI. Anicteric. right lower lid line redness with extension of redness (mild) below the eye and into the right maxilla HENT: Moist mucous membranes. No scleral icterus. No cervical lymphadenopathy. LUNGS: Clear to auscultation bilaterally. CARDIOVASCULAR: Regular rate and rhythm. No murmur. No JVD. ABDOMEN: Soft, non-tender +bs EXTREMITIES: No edema. Non-tender. SKIN: No rashes or lesions. Warm. NEUROLOGIC: No focal neurological deficits. CN II-XII grossly intact PSYCHIATRIC: Cooperative. Appropriate mood and affect REPLACED BY [facility] Medical History Right bundle branch block Positive colorectal cancer screening using Cologuard test Epigastric pain Surgical History Hx of shoulder surgery (~01/11/24) Family History Mother BP (high blood pressure) Diabetes Father BP (high blood pressure) Cancer Social History Housing: House Are you a primary out of school hours care worker to a significant other at home: No Do you presently have visiting nurse or other home services: No Patient Tobacco Use Status: Former Tobacco user Tobacco use type: Cigarette e-Cigarette/Vaping Use: Former Use service: No Current occupational status: retired 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 1. Little interest or pleasure in doing things: not at all 2. Feeling down, depressed, or hopeless: not at all 3. Trouble falling or staying asleep, or sleeping too much: not at all 4. Feeling tired or having little energy: not at all 5. Poor appetite or overeating: not at all 6. Feeling bad about yourself - or that you are a failure or have let yourself or your family down: not at all 7. Trouble concentrating on things, such as reading the newspaper or watching television: not at all 8. Moving or speaking so slowly that other people could have noticed. Or the opposite - being so fidgety or restless that you have been moving around a lot more than usual: not at all 9. Thoughts that you would be better off or of hurting yourself in some way: not at all Total score: 0 Source: Developed by Drs. Jong Rosado, Maryam Tyler, Carroll Alexander and colleagues, with an educational héctor from [employer]. Thrive Questionnaire Date Thrive assessed: 01/08/25 I am a: Patient What is your living situation today?: I have a steady place to live Within the past 12 months, did the food you bought not last and you didn't have the money to get more?: Never true Within the past 12 months, did you worry whether your food would run out before you got money to buy more?: Never true Do you have trouble paying for medicines?: No Do you have trouble getting transportation to medical appointments?: No Do you have trouble paying your heating and electricity bill?: No Do you have trouble taking care of your child, family member or friend?: No Do you have trouble with day-to-day activities such as bathing, preparing meals, shopping, managing finances, etc.?: No Are you currently unemployed and looking for a job?: No Are you interested in more education?: No Please select the resources that you would like help with: None THRIVE Score: 0 AUDIT C Alcohol Use Questionnaire (AUDIT-C) 1. How often do you have a drink containing alcohol?: Never 3. How often do you have six or more drinks on one occasion?: Never Total Score: 0 DEBBY-7 AMB Questionnaire DEBBY-7 Date DEBBY - 7 assessed: 01/08/25 Feeling nervous, anxious, or on edge: 0 = Not at all Not being able to stop or control worryin = Not at all Worrying too much about different things: 0 = Not at all Trouble relaxin = Not at all Being so restless that it is hard to sit still: 0 = Not at all Becoming easily annoyed or irritable: 0 = Not at all Feeling afraid as if something awful might happen: 0 = Not at all Total DEBBY-7 score (0-4 normal; 5-9 mild; 10-14 moderate; 15-21 severe): 0 Source: Developed by Drs. Jong Rosado, Maryam Tyler, Carroll Alexander and colleagues, with an educational héctor from [employer]. Physical exam (Primary Care) Vital Signs: Last Vital Signs Temp 97.7 F 01/08/25 14:53 Pulse 80 01/08/25 14:53 Resp 14 01/08/25 14:53 BP 152/90 H 01/08/25 14:53 Pulse Ox 98 01/08/25 14:53 Oxygen Delivery Method Room Air 01/08/25 14:53 BMI result Body Mass Index 26.0 Tobacco/Smoking Status: Tobacco use Status Tobacco use date assessed 01/08/25 01/08/25 14:56 Patient Tobacco Use Status Former Tobacco user 01/08/25 14:56 Tobacco use type Cigarette 01/08/25 14:56 e-Cigarette/Vaping Use Former Use 01/08/25 14:56 PHQ-9: PHQ-9 Score PHQ-9: Total score 0 01/08/25 14:56 Thrive Assessment: Date of Thrive Assessment Date Thrive assessed 01/08/25 01/08/25 14:56 Coding Level of Care Code New Pt Level 3 (86328) Diagnoses Hordeolum externum of right lower eyelid H00.012 Laterality: right Eyelid: lower Assessment & Plan Assessment & Plan (1) Stye: Code(s): H00.019 - Hordeolum externum unspecified eye, unspecified eyelid Category: Medical Qualifiers: Laterality: right Eyelid: lower Qualified Code(s): H00.012 - Hordeolum externum right lower eyelid Plan Low dose doxycycline sent Referral to oculoplastic for evaluation Orders: Referrals Ophthalmology Referral H00.019 - Hordeolum externum unspecified eye, unspecified eyelid Medications: New doxycycline monohydrate 50 mg PO BID 180 tabs 0RF
[2025-01-08 14:53] VITALS: BP 152/90; PULSE 80; RESP 14; TEMP 36.5; O2SAT 98; BMI 26.0
--- OUTSIDE RECORDS SUMMARY | 2025-01-08 17:42 | XMS_ITS | Patient Health Record ---
Author Organization [facility] Address [address] [place] [address] Care Team Providers Care Lead Network Architect Name Role Phone Scott Ellison MD Primary Care Provider John Rivera Jr Unavailable Allergies No Known Allergies Results Component Value Reference Range Notes Pathology Reviewed date:09/11/2024 09:08:27 AM Interpretation: Performing Lab:[facility], [address] [place] [phone] Notes/Report: Name: Javier Zhang Age/Sex: 64/M : 1960 Unit#: [id number] Attend Dr: John Jacques MD Re09/05/24 Status : [facility] Location: [facility] Disch: SPEC : [id number] RECD : 09/05/24975 STATUS: TORRES OLIVARES NUM: [id number] REENA: 09/05/24-[address]: John Jacques MD [...] rt E Age/Sex: 64/M : 1960 Unit#: [id number] Attend Dr: John Jacques MD Re09/05/24 [place] : [facility] [place] [facility] Disch: SPEC : [id number] RECD : 09/05/24 STATUS: TORRES OLIVARES NUM: [id number] REENA: 09/05/24-[address]: John Jacques MD ENTERED: 09/05/24 32 SP TYPE: Surgical OTHR DR: Scott Ellison MD ORDERED: HE Stain/3, Gross Micro L4, IHC, H. pylori Copies To: John Jacques MD [facility] [address] [place], [place] [phone] Scott Ellison MD [facility] [address] [place], [place] [phone] Signed (si gnature on file) Jia Andrews [...] Problem Status W/U Status Risk Notes Problem 56392872 Epigastric pain (R10.13) Active confirmed Problem 989914924 Abnormal findings in stool (R19.5) Active confirmed Problem Gastritis (5581614) Gastritis (K29.70) Active confirmed Vital Signs Temperature 97.7 degrees Fahrenheit 08/27/2024 Blood pressure diastolic 00 mm Hg 08/27/2024 Height 5 ft 9 in in 08/27/2024 Blood pressure systolic 000 mm Hg 08/27/2024 Weight 171 lb 6 oz lbs 08/27/2024 BMI 25.30 kg/m2 08/27/2024 Encounters Encounter Location Date Provider Diagnosis [facility] Outpatient [address] [place], [place] [phone] 09/05/2024 John Jacques Jr Abnormal findings in stool R19.5 ; Epigastric pain R10.13 and Gastritis K29.70 [facility] [address] [facility] [address] [place] [address] 08/27/2024 John Jacques Jr Epigastric pain R10.13 and Abnormal findings in stool R19.5 [facility] [address] [place] [address] 09/11/2024 John Jacques Jr Assessments Encounter Date [...] Date MEDICARE OF [place] [address] [place] [address] [id number] JAD CORLEY Self - patient is the insured [employer] [address] [place] [address] [id number] JAD CORLEY Self - patient is the insured Medical (General) History Surgical History Surgery Date(Month/Year) Left shoulder arthroscopy 01/15
--- OUTSIDE RECORDS SUMMARY | 2025-01-08 17:42 | XMS_ITS ---
Author Organization [facility] Address [address] [place] [phone] Care Team Providers Care King Maker Name Role Phone Scott Ellison MD Primary Care Provider Boom Jacques Jr, John Guerrero REASON FOR VISIT pathology Medications Medication SIG (Take, Route, Fr equency, Duration) Notes Start Date End Date Status Omeprazole 20 MG 1 capsule 1/2 to 1 h our before morning meal Orally Once a day for 30 day(s) 09/11/2024 Active Encounters Encounter Location Date Provider Diagnosis [facility] [address] [address] 09/11/2024 John Jacques Jr Plan Of Treatment Medication Medication Name Sig Start Date Stop Date Notes Omeprazole 20 MG 1 capsule 1/2 to 1 h our before morning meal Orally Once a day for 30 day(s) 09/11/2024 Progress Notes * JAD ZHANG EDOB:[birth year] (64 yo M)Acc No.[id number]:09/11/2024 Patient:?JAD ZHANG :1960???Age:64 Y???Sex:Male Address:[address] [place] [address], [address] * Refills? Start Omeprazole Capsule Delayed Release, 20 MG, Orally, 30, 1 capsule 1/2 to 1 hour before morning meal, Once a day, 30 day(s), Refills=1 * true * Date:? Generated for Didi larson/Guerita/Sukhjinderitting on:?01/08/2025 05:42 PM EDT
--- OUTSIDE RECORDS SUMMARY | 2025-01-08 17:42 | XMS_ITS ---
Author Organization [facility] Address [address] [place] [address] Care Team Providers Care Clinical Laboratory Service Teacher Name Role Phone Scott Ellison MD Primary Care Provider John Rivera Jr REASON FOR VISIT epigastric pain,abnormall findings in stool Problems Problem Type SNOMED Code ICD Code Onset Dates Problem Status W/U Status Risk Notes Problem Gastritis (4770906) Gastritis (K29.70) Active confirmed Encounters Encounter Location Date Provider Diagnosis [facility] [place] [address] [place] [phone] 09/05/2024 John Jacques Jr Abnormal findings in [...] * JAD ZHANG EDOB:[birth year] (64 yo M)Acc No.[id number]:09/05/2024 EGD and COL/MAC Patient:?JAD ZHANG Provider:?John Jacques MD :1960???Age:64 Y???Sex:Male Pete e:09/05/2024 Address:[address] [place], [place] [phone] Pcp:Scott Ellison MD Subjective: * Chief Complaints: * ???1. Epigastric pain,abnorm all findings in stool. * Medical History:? Objective: * Vitals:? Assessment: * Assessment: 1.?Abnormal findings in stoo l - R19.5 (Primary)???2.?Epigastric pain - R10.13???3.?Gastritis - K29.70??? Plan: * Treatment: * Procedure Codes:?11095 DIAGN OSTIC COLONOSCOPY, 0528F RCMND FLW-UP 10 [...] MD Date:?1 11/06/2023 Generated for Didi larson/Guerita/eTransmitting on:?01/08/2025 05:42 PM EDT
--- OUTSIDE RECORDS SUMMARY | 2025-01-08 17:42 | XMS_ITS ---
Author Organization [facility] Address [address] [place] [address] Care Team Providers Care Electric Appliance Installer Name Role Phone Scott Ellison MD Primary Care Provider John Rivera Jr Unavailable [phone] Allergies No Known Allergies REASON FOR [...] Problem Status W/U Status Risk Notes Problem 56116517 Epigastric pain (R10.13) Active confirmed Problem 968709081 Abnormal findings in stool (R19.5) Active confirmed Vital Signs Temperature 97.7 degrees Fahrenheit 08/27/20 24 Blood pressure systolic 000 mm Hg 08/27/20 24 Blood pressure diastolic 00 mm Hg 024 Height 5 ft 9 in in 08/27/2024 Weight 171 lb 6 oz lbs 08/27/2024 BMI 25.30 kg/m2 08/27/2024 Encounters Encounter Location Date Provider Diagnosis [facility] [address] [facility] [address] [place] [address] 08/27/2024 John Jacques Jr Epigastric pain R10.13 [...] Notes * ZHANGJAD EDOB:[birth year]10 (64 yo M)Acc No.[id number]:08/27/2024 Progress Notes Patient:?JAD ZHANG Provider:?John Jacques MD :1960???Age:64 Y???Sex:Male Pete e:08/27/2024 Address:[address] [place], [place] [phone] Pcp:Scott Ellison MD Subjective: * Chief Complaints: [...] MD Date:?1 10/28/2023 Generated for Didi larson/Guerita/eTransmitting on:?01/08/2025 05:42 PM EDT History and Physical Notes * [...]
== END 2025-01-08 15:03 | disposition home or self-care (01) ==
LOC: HO.HMCHD 14:52
PROVIDERS: PCP Internal Medicine; Visit Provider Internal Medicine
DX: H00.012 Hordeolum externum right lower eyelid (principal)

== ENCOUNTER → 2025-01-08 14:52 | Outpatient (BNVA) | payer MEDICARE, OTHER, SELFPAY | PROVIDERS: PCP Internal Medicine; Visit Provider Internal Medicine | DX: K21.9 Gastro-esophageal reflux disease without esophagitis (principal); H00.012 Hordeolum externum right lower eyelid | CPT/HCPCS: 96127; 99202 ==

== ENCOUNTER 2025-02-03 09:04 | Outpatient (AMB) | payer MEDICARE, OTHER, SELFPAY ==
[2025-02-03 09:08] VITALS: BMI 26.0
--- NOTE | 2025-02-03 09:08 | MHC.OFFVIS ---
Vital Signs 02/03/25 09:08 Height 5 ft 9 in Weight 176 lb BMI 26.0 Intake Visit Reasons: PO RT shoulder 12/08/24 Intake Note: Jong is a 64 year old male who presents today post-operatively after undergoing right shoulder arthroscopic surgery on 12/08/24. At their last visit on 12/23/24 the patient was referred to physical therapy. Patient presented today wearing a sling, reporting he was told he should continue to wear it. Patient states physical therapy has him doing gentle exercises. He denies any fevers or chills. He does not take any medicines for his discomfort. Allergies No Known Allergies Allergy (Verified 02/03/25 09:08) Medication List - Last Reconciled 02/03/25 by Alcides Stone MD doxycycline monohydrate 50 mg PO BID multivitamin 1 tab PO DAILY omeprazole 20 mg PO DAILY PFSH Medical History (Updated 01/08/25 @ 15:05 by Bertha Santiago MD) Right bundle branch block Positive colorectal cancer screening using Cologuard test Epigastric pain Surgical History (Updated 01/16/25 @ 12:25 by Bettina Yu) History of colonoscopy (~09/05/24) Hx of shoulder surgery (~01/11/24) Family History Mother BP (high blood pressure) Diabetes Father BP (high blood pressure) Cancer Social History Housing: House Are you a primary director of managed care to a significant other at home: No Do you presently have visiting nurse or other home services: No Patient Tobacco Use Status: Former Tobacco user Tobacco use type: Cigarette e-Cigarette/Vaping Use: Former Use service: No Current occupational status: retired 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 Bentley continues to do well after undergoing right shoulder rotator cuff repair surgery on 12/08/2024. He can begin active range of motion and gentle stretching exercises below his pain threshold. The do's and don'ts of lifting were discussed at length with the patient. He will contact me prior to his follow-up appointment in 2 months should any questions or concerns arise. Feel free to call me at any time should questions regarding his orthopedic management arise. Orders: Orders PT Evaluation and Treatment Today M25.511 - Pain in right shoulder Coding Level of Care Code Global (56974) Diagnoses Right shoulder pain M25.511
--- OUTSIDE RECORDS SUMMARY | 2025-02-03 09:30 | XMS_ITS ---
Author Organization [facility] Address [address] [place] [address] Care Team Providers Care Harness And Bag Inspector Name Role Phone Scott Ellison MD Primary Care Provider John Rivera Jr REASON FOR VISIT epigastric pain,abnormall findings in stool Problems Problem Type SNOMED Code ICD Code Onset Dates Problem Status W/U Status Risk Notes Problem Gastritis (1851509) Gastritis (K29.70) Active confirmed Encounters Encounter Location Date Provider Diagnosis [facility] Outpatient [address] [place] [phone] 09/05/2024 John Jacques Jr Abnormal findings in [...] * JAD ZHANG EDOB:[birth year] (64 yo M)Acc No.[id number]:09/05/2024 EGD and COL/MAC Patient:?JAD ZHANG Provider:?John Jacques MD :1960???Age:64 Y???Sex:Male Pete e:09/05/2024 Address:[address] [place], [place] [phone] Pcp:Scott Ellison MD Subjective: * Chief Complaints: * ???1. Epigastric pain,abnorm all findings in stool. * Medical History:? Objective: * Vitals:? Assessment: * Assessment: 1.?Abnormal findings in stoo l - R19.5 (Primary)???2.?Epigastric pain - R10.13???3.?Gastritis - K29.70??? Plan: * Treatment: * Procedure Codes:?45397 DIAGN OSTIC COLONOSCOPY, 0528F RCMND FLW-UP 10 [...] MD Date:?1 11/06/2023 Generated for Didi larson/Guerita/eTransmitting on:?02/03/2025 09:30 AM EDT
--- OUTSIDE RECORDS SUMMARY | 2025-02-03 09:31 | XMS_ITS ---
Author Organization [facility] Address [address] [place] [address] Care Team Providers Care Flamer Sealer Name Role Phone Scott Ellison MD Primary Care Provider Boom Jacques Jr, John Guerrero REASON FOR VISIT pathology Medications Medication SIG (Take, Route, Fr equency, Duration) Notes Start Date End Date Status Omeprazole 20 MG 1 capsule 1/2 to 1 h our before morning meal Orally Once a day for 30 day(s) 09/11/2024 Active Encounters Encounter Location Date Provider Diagnosis [facility] [address] [address] 09/11/2024 John Jacques Jr Plan Of Treatment Medication Medication Name Sig Start Date Stop Date Notes Omeprazole 20 MG 1 capsule 1/2 to 1 h our before morning meal Orally Once a day for 30 day(s) 09/11/2024 Progress Notes * JAD ZHANG EDOB:[birth year] (64 yo M)Acc No.[id number]:09/11/2024 Patient:?JAD ZHANG :1960???Age:64 Y???Sex:Male Address:[address] [place] [address], [address] * Refills? Start Omeprazole Capsule Delayed Release, 20 MG, Orally, 30, 1 capsule 1/2 to 1 hour before morning meal, Once a day, 30 day(s), Refills=1 * true * Date:? Generated for Didi larson/Guerita/Sukhjinderitting on:?02/03/2025 09:31 AM EDT
--- OUTSIDE RECORDS SUMMARY | 2025-02-03 09:31 | XMS_ITS | Patient Health Record ---
Author Organization [facility] Address [address] [place] [address] Care Team Providers Care Basket Weaver Name Role Phone Scott Ellison MD Primary Care Provider John Rivera Jr Unavailable [phone] Allergies No Known Allergies Results Component Value Reference Range Notes Pathology Reviewed date:09/11/2024 09:08:27 AM Interpretation: Performing Lab:[facility], [address] [place] [phone] Notes/Report: Name: Javier Zhang Age/Sex: 64/M : 1960 Unit#: [id number] Attend Dr: John Jacques MD Re09/05/24 Status : [facility] Location: [facility] Disch: SPEC : [id number] RECD : 09/05/24401 STATUS: TORRES OLIVARES NUM: [id number] REENA: 09/05/24-[address]: John Jacques MD ENTERED: 09/05/24-14 32 SP TYPE: Surgical OTHR DR: Scott Ellison MD ORDERED: HE Stain/3, Gross Micro L4, IHC, H. pylori Addendum Addendum 1 Entered: 09/10/24 Immunostain for H py one[place] is negative with appropriate controls. Addendum Signed ____ __(signature on file) Jia Midnight 09/10/24 163 Diagnosis Gastric antrum, biop sy: [...] rt E Age/Sex: 64/M : 1960 Unit#: [id number] Attend Dr: John Jacques MD Re09/05/24 Status : [facility] Location: [facility] Disch: SPEC : [id number] RECD : 09/05/24 STATUS: TORRES OLIVARES NUM: [id number] REENA: 09/05/24-[address]: John Jacques MD ENTERED: 09/05/24 32 SP TYPE: Surgical OTHR DR: Scott Ellison MD ORDERED: HE Stain/3, Gross Micro L4, IHC, H. pylori Copies To: John Jacques MD [facility] [address] [place], [place] [phone] Scott Ellison MD [facility] [address] [place], [place] [phone] Signed (si gnature on file) Jia Andrews [...] Problem Status W/U Status Risk Notes Problem 77153418 Epigastric pain (R10.13) Active confirmed Problem 683798107 Abnormal findings in stool (R19.5) Active confirmed Problem Gastritis (8502146) Gastritis (K29.70) Active confirmed Vital Signs Temperature 97.7 degrees Fahrenheit 08/27/2024 Blood pressure diastolic 00 mm Hg 08/27/2024 Height 5 ft 9 in in 08/27/2024 Blood pressure systolic 000 mm Hg 08/27/2024 Weight 171 lb 6 oz lbs 08/27/2024 BMI 25.30 kg/m2 08/27/2024 Encounters Encounter Location Date Provider Diagnosis [facility] Outpatient [address] [place], [place] [phone] 09/05/2024 John Jacques Jr Abnormal findings in stool R19.5 ; Epigastric pain R10.13 and Gastritis K29.70 [facility] [address] [facility] [address] [place] [address] 08/27/2024 John Jacques Jr Epigastric pain R10.13 and Abnormal findings in stool R19.5 [facility] [address] [place] [address] 09/11/2024 John Jacques Jr Assessments Encounter Date [...] Date MEDICARE OF [place] [address] [place] [address] [id number] JAD CORLEY Self - patient is the insured [employer] [address] [place] [id number] JAD CORLEY Self - patient is the insured Medical (General) History Surgical History Surgery Date(Month/Year) Left shoulder arthroscopy 01/15
--- OUTSIDE RECORDS SUMMARY | 2025-02-03 09:31 | XMS_ITS ---
Author Organization [facility] Address [address] [place] [address] Care Team Providers Care Rim Turning Finisher Name Role Phone Scott Ellison MD Primary [...] Problem Status W/U Status Risk Notes Problem 37381689 Epigastric pain (R10.13) Active confirmed Problem 008667514 Abnormal findings in stool (R19.5) Active confirmed Vital Signs Temperature 97.7 degrees Fahrenheit 08/27/20 24 Blood pressure systolic 000 mm Hg 08/27/20 24 Blood pressure diastolic 00 mm Hg 024 Height 5 ft 9 in in 08/27/2024 Weight 171 lb 6 oz lbs 08/27/2024 BMI 25.30 kg/m2 08/27/2024 Encounters Encounter Location Date Provider Diagnosis [facility] [address] [facility] [address] [place] [address] 08/27/2024 John Jacques Jr Epigastric pain R10.13 [...] Notes * ZHANGJAD EDOB:[birth year] (64 yo M)Acc No.[id number]:08/27/2024 Progress Notes Patient:?JAD ZHANG Provider:?John Jacques MD :1960???Age:64 Y???Sex:Male Pete e:08/27/2024 Address:[address] [place], [place] [phone] Pcp:Scott Ellison MD Subjective: * Chief Complaints: [...] MD Date:?1 10/28/2023 Generated for Didi larson/Guerita/eTransmitting on:?02/03/2025 09:31 AM EDT History and Physical Notes * [...]
== END 2025-02-03 09:32 | disposition home or self-care (01) ==
LOC: HO.HOS 09:05
PROVIDERS: PCP Internal Medicine; Visit Provider Orthopaedic Surgery
DX: M25.511 Pain in right shoulder (principal)
CPT/HCPCS: 99024

== ENCOUNTER → 2025-02-03 09:04 | Outpatient (BNVA) | payer MEDICARE, OTHER, SELFPAY | PROVIDERS: PCP Internal Medicine; Visit Provider Orthopaedic Surgery | DX: M25.511 Pain in right shoulder (principal) | CPT/HCPCS: 99212 ==

== ENCOUNTER 2025-03-20 07:51 | Outpatient (RCR) | payer MEDICARE, OTHER, SELFPAY ==
--- NOTE | 2025-01-02 14:56 | MHC.PT.EP ---
[facility] [place] Office [place] Office [place] Office [address] Sebastian Marquez [address] [phone] F: [phone] F: [phone] F: [phone] F: [phone] Physical Therapy Plan of Care Date of Evaluation: 01/01/25 Date of Surgery: 12/08/2024 Diagnosis: R RTC repair Assessment: Pt is a 64 y/o male who is referred to PT for eval and treat s/p R RTC repair with repair of supraspinatus, DCE, SAD, and biceps debridement performed on 12/08/2024 for management of his chronic R shoulder pain and his condition is resulting in decreased tolerance and ability for reaching shelves and his back and neck for hygiene and dressing, laying on his R side, driving, pulling lifting pushing with R UE, as well 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 Pt is deemed an appropriate candidate to receive skilled PT services to address their physical impairments in order to improve their functional ability. Frequency and Duration: The patient will be seen 2 x / wk x 12 wks. Short Term Goals: initiate home program. Improve R flexion POM to at least 145 degrees; initial: degrees. 50 degrees. [facility] Goals: I with home program. Pt will be able to place object on high shelf with managed Sx; initial: unable. Pt will be able to dress and wash his hair with managed Sx. Improve SPADI outcome measure by at least 15 points. Treatment Plan: Modalities to reduce pain, spasms and effusion. Manual therapy to restore motion and function. Therapeutic exercise to improve strength and flexibility. Neuromuscular re-education for posture and balance. Therapeutic activities to return to functional activities of daily living. Electronically signed by: Tim Echavarria PT. Please sign and return to therapist. Thank you for your referral.
--- NOTE | 2025-03-20 13:30 | MHC.PT.DC ---
[facility] [place] [facility] [place] [facility] [place] [facility] [address] Sebastian Marquez [address] [phone] F: [phone] F: [phone] F: [phone] F: [phone] Physical Therapy Discharge Report Diagnosis: R RTC repair Date of Surgery: 12/08/2024 Date of Evaluation: 01/01/25 Date of Discharge: 03/20/25 Treatments to Date: 17 Cancellations to Date: No Shows to Date: Discharge Status: Achieved Goals Improved Function Independent with HEP Discharge Summary: 03/20: Jong has been an active and motivated participant in his therapy in and out of the clinic. Though he persists with some pain with activity and limited ROM we are in agreement with DC at this time as he is improved of his function, ROM, he has met his therapeutic goals. 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 Electronically signed by: Tim Echavarria PT. Please sign and return to therapist. Thank you for your referral.
== END 2025-03-20 13:39 | disposition home or self-care (01) ==
LOC: HO.PT 07:51
PROVIDERS: PCP Internal Medicine; Visit Provider Orthopaedic Surgery
DX: M25.511 Pain in right shoulder (principal); Z98.890 Other specified postprocedural states
CPT/HCPCS: 97110; 97140; 97161; 97530

== ENCOUNTER 2025-04-08 14:37 | Outpatient (AMB) | payer MEDICARE, OTHER, SELFPAY ==
--- OUTSIDE RECORDS SUMMARY | 2024-09-05 09:10 | XMS_ITS ---
Author Organization [facility] Address [address] [place] [address] Care Team Providers Care Resident Services Coordinator Name Role Phone Scot (RETIRED) Scott BUCHANAN Primary Care Provide r Cesar Jacques Jr, John Guerrero REASON FOR VISIT epigastric pain,abnormall findings in stool Problems Problem Type SNOMED Code ICD Code Onset Dates Problem Status W/U Status Risk Notes Problem Gastritis (7700622) Gastritis (K29.70) Active confirmed Encounters Encounter Location Date Provider Diagnosis [facility] [place] [address] [place] [id number] 09/05/2024 John Jacques Jr Abnormal findings in stool R19.5 ; Epigastric pain R10.13 and Gastritis K29.70 Assessments Encounter Date Diagnosis (ICD Code) Assessment Notes Treatment Notes Treatment Clinical Notes Section Notes 09/05/2024 Abnormal findings in stool (ICD-10 - R19.5) 09/05/2024 Epigastric pain (ICD-10 - R10.13) 09/05/2024 Gastritis (ICD-10 - K29.70) Plan Of Treatment No Information Progress Notes * JAD ZHANG EDOB:[birth year] (64 yo M)Acc No.[id number]:09/05/2024 EGD and COL/MAC Patient: Janelle NATHANJASJAD Provider: Fortino Jacques MD :1960 A ge:64 Y S ex:Male Date:09/05/2024 Address:[address] [place], [place] [id number] Pcp:Scott Ellison (RETIRED )MD Subjective: * Chief Complaints: * 1 . Epigastric pain,abnormall findings in stool. * Medical History: Objective: * Vitals: Assessment: * Assessment: 1. A bnormal findings in stool - R19.5 (Primary) 2 . E pigastric pain - R10.13 3 . G astritis - K29.70 Plan: * Treatment: * Procedure Codes: 4 5378 DIAGNOSTIC COLONOSCOPY, 0528F RCMND FLW-UP 10 YRS DOCD * Preventive Medicine: LESLEE Screening: C olonoscopy W as interval between colonoscopies three years or more? N o due to Medical Reason, W as last colonoscopy performed three or more years ago??No due to Medical Reason. * * The named appointment provid er may or may not be the originator of this progress note, and it is not deemed complete until electronically signed by the appointment provider. Sign off status: Pending * Provider: Fortino Jacques MD Date: 1 11/06/2023 Generated for Didi larson/Guerita/eTransmitting on: 0 04/08/2025 03:14 PM EDT
--- NOTE | 2025-04-08 14:40 | A.OFFVIS_ITS ---
Vital Signs 04/08/25 14:41 Height 5 ft 9 in Weight 176 lb BMI 26.0 Intake Visit Reasons: Right shoulder discomfort Intake Note: Jong is a 64 year old male who presents with complaints of mild intermittent discomfort along the anterior aspect of his right shoulder after undergoing right shoulder rotator cuff repair surgery on 12/08/2024. 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 He denies any fevers or chills. He does take Tylenol as needed for his discomfort. He continues with his home stretching program. Allergies No Known Allergies Allergy (Verified 04/08/25 14:55) Medication List - Last Reconciled 04/08/25 by Alcides Stone MD doxycycline monohydrate 50 mg PO BID multivitamin 1 tab PO DAILY omeprazole 20 mg PO DAILY PFSH Medical History (Updated 01/08/25 @ 15:05 by Bertha Santiago MD) Right bundle branch block Positive colorectal cancer screening using Cologuard test Epigastric pain Surgical History (Updated 01/16/25 @ 12:25 by Bettina Yu) History of colonoscopy (~09/05/24) Hx of shoulder surgery (~01/11/24) Family History Mother BP (high blood pressure) Diabetes Father BP (high blood pressure) Cancer Social History Housing: House Are you a primary housekeeper child care to a significant other at home: No Do you presently have visiting nurse or other home services: No Patient Tobacco Use Status: Former Tobacco user Tobacco use type: Cigarette e-Cigarette/Vaping Use: Former Use service: No Current occupational status: retired 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 Bentley is doing well after undergoing right shoulder rotator cuff repair surgery on 12/08/2024. He will continue with his home stretching program. The do's and don'ts of lifting were discussed at length with the patient. He will follow up with me on an as-needed basis should his symptoms worsen in any way. Feel free to call me at any time should questions regarding his orthopedic management arise. I spent 21 minutes in reviewing the patient's records and imaging studies, seeing the patient and documenting in the medical record. Coding Level of Care Code Est Pt Level 3 (20565) Complex EM visit Add On G2211 Diagnoses Right shoulder pain M25.511
[2025-04-08 14:41] VITALS: BMI 26.0
== END 2025-04-08 15:03 | disposition home or self-care (01) ==
LOC: HO.HOS 14:37
PROVIDERS: PCP Internal Medicine; Visit Provider Orthopaedic Surgery
DX: M25.511 Pain in right shoulder (principal)
CPT/HCPCS: 99213; G2211

== ENCOUNTER → 2025-04-08 14:37 | Outpatient (BNVA) | payer MEDICARE, OTHER, SELFPAY | PROVIDERS: PCP Internal Medicine; Visit Provider Orthopaedic Surgery | DX: M25.511 Pain in right shoulder (principal); Z79.2 Long term (current) use of antibiotics; Z79.899 Other long term (current) drug therapy | CPT/HCPCS: 99212 ==

== ENCOUNTER 2025-06-15 14:42 | Outpatient (REF) | payer MEDICARE, OTHER, SELFPAY ==
[2025-06-15 16:30] LABS: Hematocrit 41.2 % (42.0-52.0); Hemoglobin 14.1 g/dl (14.0-18.0); Mean Corpuscular HGB Conc 34.2 g/dl (31.0-36.0); Mean Corpuscular Hemoglobin 32.1 pg (27.0-33.0); Mean Corpuscular Volume 93.8 fL (80.0-98.0); NRBC Abs Auto 0.000 X10*3/uL (0.0-0.012); NRBC Pct Auto 0.0 /100WBC (0.0-0.2); Platelet Count 283 X10*3/uL (160-400); Red Blood Count 4.39 X10*6/uL (4.60-5.80); White Blood Count 6.8 X10*3/uL (4.8-10.8)
[2025-06-15 17:06] LABS: Alanine Aminotransferase 38 U/L (0-40); Albumin Level 4.5 g/dL (3.5-5.0); Alkaline Phosphatase 75 U/L (39-117); Anion Gap 10 (12-20); Aspartate Amino Transferase 36 U/L (5-37); Blood Urea Nitrogen 14 mg/dL (9-16); Calcium 9.2 mg/dL (8.4-10.2); Carbon Dioxide 28 mmol/L (22-29); Chloride 109 mmol/L (96-108); Cholesterol 175 mg/dL (<200); Estimated Glomerular Filt Rate > 60; HDL Cholesterol 45 mg/dL (>40); Potassium 4.1 mmol/L (3.3-5.1); Sodium 143 mmol/L (135-145); Total Protein 7.2 g/dL (6.5-8.0); Triglycerides 201 mg/dL (<150)
== END 2025-06-15 14:43 | disposition home or self-care (01) ==
LOC: HO.LAB 14:42
PROVIDERS: PCP Physician Assistant Medical; Visit Provider Physician Assistant Medical
DX: Z00.00 Encounter for general adult medical examination without abnormal findings (principal); Z13.220 Encounter for screening for lipoid disorders; I45.10 Unspecified right bundle-branch block; H00.012 Hordeolum externum right lower eyelid; M25.511 Pain in right shoulder; M25.512 Pain in left shoulder
CPT/HCPCS: 36415; 80053; 80061; 84443; 85027